=== PATIENT | male | born 1970 | race Hispanic/Latino ===

== ENCOUNTER 2018-01-08 15:52 | Emergency (ER) | payer SELFPAY ==
[2018-01-08] MEDS ORDERED: Lidocaine 1% PF 5 ML VIAL ONE ×3 (16:09→17:21)
[2018-01-08] MEDS ORDERED: cefTRIAXone\\ROCEPHIN 1 GM VIAL ONE (16:19)
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
== END 2018-01-08 18:15 | disposition home or self-care (01) ==
LOC: ERS 15:52
DX: S61.315A Laceration without foreign body of left ring finger with damage to nail, initial encounter (principal); S61.301A Unspecified open wound of left index finger with damage to nail, initial encounter; S61.217A Laceration without foreign body of left little finger without damage to nail, initial encounter; W22.8XXA Striking against or struck by other objects, initial encounter
CPT/HCPCS: 12001; 96372; J0696; J2001

== ENCOUNTER 2020-05-28 11:44 | Inpatient (IN) | payer SELFPAY ==
[2020-05-28] MEDS ORDERED: cefTRIAXone\\ROCEPHIN 1 GM VIAL ONE (12:15)
[2020-05-28] MEDS ORDERED: Acetaminophen 500 MG TAB ONE (12:15)
[2020-05-28] MEDS ORDERED: Dexamethasone 10 MG/ML VIAL ONE (12:15)
[2020-05-28] MEDS ORDERED: Azithromycin 500 MG VIAL ONE (12:15)
--- NOTE | 2020-05-28 12:15 | RAD ---
Exam: Chest one view HISTORY:Dyspnea. Shortness of breath. Comparison: None FINDINGS: Cardiac silhouette: Normal Aorta: Unremarkable Pulmonary vessels: Normal Costophrenic angles: Clear LUNGS: Diminished lung volumes, likely due to a poor inspiratory effort. There are multifocal interst itial and alveolar opacities. Pneumothorax: None Osseous abnormalities: None IMPRESSION: Multifocal interstitial and alveolar opacities. Correlate for COVID 19 pneumonia.
[2020-05-28 12:26] LABS: #Lymphocytes 0.7 thou/uL (1.20-3.40); #Monocytes 0.7 thou/uL (0.11-0.59); #Neutrophils 13.6 thou/uL (1.40-6.50); %Basophils 0.1 % (0.0-1.0); %Lymphocytes 4.6 % (21.0-51.0); %Monocytes 4.9 % (0.0-10.0); %Neutrophils 90.3 % (42.0-75.0); Hemoglobin 13.8 g/dL (14.0-18.0); Mean Corpuscular HGB CONC 34.9 g/dL (32.0-36.0); Mean Corpuscular Hemoglobin 31.5 pg (27.0-31.0); Mean Corpuscular Volume 90.3 fL (78.0-98.0); Mean Platelet Volume 8.7 fL (7.4-10.4); Platelet Count 224 thou/uL (130-400); RBC Distribution Width 11.8 % (11.5-14.5); Red Blood Cell (RBC) Count 4.39 mill/uL (4.70-6.10)
[2020-05-28 12:44] LABS: ALT (SGPT) 25 U/L (8-55); AST (SGOT) 17 U/L (5-34); Albumin 4.2 g/dL (3.5-5.0); Alkaline Phosphatase 131 U/L (40-110); Anion Gap 18 mmol/L (10-20); BUN (Urea Nitrogen) 14 mg/dL (8.9-20.6); Bilirubin, Total 0.7 mg/dL (0.2-1.2); Calc. Creatinine Clearance 0 mL/min (70-130); Calcium 9.6 mg/dL (7.8-10.44); Carbon Dioxide 25 mmol/L (22-29); Chloride 99 mmol/L (98-107); Globulin 4.2 g/dL (2.4-3.5); Glucose 150 mg/dL (70-105); Potassium 3.5 mmol/L (3.5-5.1); Protein, Total 8.4 g/dL (6.0-8.3); Sodium 138 mmol/L (136-145)
[2020-05-28] MEDS ORDERED: Iopamidol-370 76% 500 ML 1 ML ONE (13:07)
[2020-05-28 13:19] LABS: SARS-CoV-2 NAA Rapid Test DETECTED (NotDetected)
--- NOTE | 2020-05-28 14:11 | CT ---
CT ANGIO OF CHEST PERFORMED WITH INTRAVENOUS CONTRAST ENHANCEMENT WITH 3D RECONSTRUCTIONS: HISTORY: Mild nonproductive cough, low-grade fever. FINDINGS: There are fairly extensive bilateral ground-glass infiltrative lung changes highly suggestive of COVI D pneumonia. There is no significant mediastinal adenopathy. There are small nonspecific hilar node s. The pulmonary artery opacification is suboptimal and this exam is not diagnostic for evaluation for p ulmonary embolus. Visualized liver parenchyma shows no focal abnormalities. IMPRESSION: 1. Extensive bilateral ground-glass infiltrates, highly suspicious for COVID pneumonia. 2. Nondiagnostic examination for evaluation for pulmonary embolus due to poor contrast bolus. POS: NIKITA
[2020-05-28] MEDS ORDERED: Ondansetron PF 4 MG/2 ML Vial IVP PRN (15:18)
[2020-05-28] MEDS ORDERED: Dextrose 50% Abboject 50 ML SYRINGE SLOW IVP PRN (15:18)
[2020-05-28] MEDS ORDERED: Senokot S 8.6-50 MG TAB PO PRN (15:18)
[2020-05-28] MEDS ORDERED: Bisacodyl 10 MG SUPP PR PRN (15:18)
[2020-05-28] MEDS ORDERED: Dextrose 5% in Water 1,000 ML IV PRN (15:18)
[2020-05-28] MEDS ORDERED: Calcium Carbonate 500 MG ChewTAB PO PRN (15:18)
[2020-05-28 15:25] LABS: Troponin I Less than 0.010 ng/mL (< 0.028)
[2020-05-28] MEDS ORDERED: Enoxaparin Sodium 100 MG/ML SYRINGE ONE (16:10)
[2020-05-28] MEDS ORDERED: REMDESIVIR (EUA) 200 MG in Sodium Chloride 0.9% 250 ML 210 ML IV SCH (17:00)
--- NOTE | 2020-05-28 18:29 | HP ---
REASON FOR ADMISSION: COVID-19 pneumonia with acute respiratory failure with hypoxia on high-flow oxygen. HISTORY OF PRESENTING ILLNESS: The patient gives history of developing shortness of breath from last two days, specifically Thursday afternoon. He states he developed fever from yesterday. He has had progressive shortness of breath and finally made it to emergency room. He could not ambulate at home. He states his and 6-year-old and 2-year-old children are healthy as far as he knows. No complaints of chest pain, palpitation, or specific weakness in the extremities. No diarrhea. The patient states he is tolerating solid diet, but has some loss of appetite. 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 PAST SURGICAL HISTORY: No prior surgeries. CURRENT MEDICATIONS: None. PERSONAL HISTORY: Drinks on social occasions. Does not abuse drugs or smoke. Lives with his . Works in construction. FAMILY HISTORY: Both parents are living and healthy as far as he knows. CODE STATUS: Full. Power of safety professional is his . REVIEW OF SYSTEMS: CONSTITUTIONAL: Negative for weight loss or gain, ability to conduct usual activities. SKIN: Negative for rash, itching. EYES: Negative for double vision, pain. ENT/MOUTH: Negative for nose bleeding, neck stiffness, pain, tenderness. CARDIOVASCULAR: Negative for palpitations, dyspnea on exertion, orthopnea. RESPIRATORY: Negative for shortness of breath, wheezing, cough, hemoptysis, fever or night sweats. GASTROINTESTINAL: Negative for poor appetite, abdominal pain, heartburn, nausea, vomiting, constipation, or diarrhea. GENITOURINARY: Negative for urgency, frequency, dysuria, nocturia. MUSCULOSKELETAL: Negative for pain, swelling. NEUROLOGIC/PSYCHIATRIC: Negative for anxiety, depression. ALLERGY/IMMUNOLOGIC: Negative for skin rash, bleeding tendency. PHYSICAL EXAMINATION: GENERAL: The patient is a 49-year-old male who is currently in [id number] respiratory distress and is on high-flow oxygen. VITAL SIGNS: Blood pressure 130/80, pulse 98 per minute, respiratory rate 34 per minute, temperature 102.9 degrees Fahrenheit, and saturating 86% on room air and 100% on high-flow oxygen. NECK: Supple. No elevated JVD. HEENT: Eyes, extraocular muscles intact. Pupils reacting to light. Oral cavity, mucous membranes are dry. No exudates or congestion. CARDIOVASCULAR SYSTEM: S1, S2 heard. RESPIRATORY SYSTEM: Air entry 1+ bilateral. The patient has coarse rales bilateral, rhonchi plus bilateral. ABDOMEN: Soft. Bowel sounds heard. No tenderness, rigidity, or guarding. EXTREMITIES: No peripheral edema or calf tenderness. VASCULAR SYSTEM: Peripheral pulses 2+ bilateral. No ischemic ulcers or gangrene. CENTRAL NERVOUS SYSTEM: No gross focal motor deficits noted. The patient is alert, awake and oriented well. PSYCHIATRIC SYSTEM: The patient's mood is euthymic. No hallucinations or delusions. IMAGING DATA: CT angio chest done shows extensive bilateral ground-glass infiltrates highly suspicious for COVID pneumonia. The exam was nondiagnostic for PE due to poor contrast bolus. LABORATORY DATA: AST 17, ALT 25, alkaline phosphatase 131, total bilirubin 0.7. BNP 10. Albumin 4.2. COVID-19 PCR is positive. Influenza A and B antigens are negative. Troponin x2 negative. Electrolytes stable. BUN 14, creatinine 0.8. D-dimer 0.7. White count of 15, hemoglobin and hematocrit 13 and 39, platelet count 224 with 90% neutrophils. CLINICAL IMPRESSION AND PLAN: The patient will be admitted to medical floor for acute respiratory failure with hypoxia on high-flow oxygen with COVID-19 pneumonia. The patient states his symptoms started two days back and has had progressive worsening. He is saturating well on high-flow oxygen at present. He has extensive infiltrates on the CAT scan. I have spoken to Dr. Houser and he has agreed for remdesivir. He will be on albuterol inhaler every 6 hours, dexamethasone 6 mg IV daily, Pepcid 20 mg twice daily, and Lovenox 40 mg subcu twice daily. The patient's serum glucose is 150 and he states he is not a diabetic. We will obtain HbA1c and place him on moderate coverage with Humalog. We will continue to closely monitor him on medical floor. Job ID: [id number]
[2020-05-28 18:57] LABS: Hemoglobin A1c 5.5 % (4.0-6.0)
[2020-05-28 19:47] VITALS: BMI 28.0
[2020-05-28] MEDS: Enoxaparin Sodium 40 MG/0.4 ML SYRINGE SC SCH (21:11)
[2020-05-28] MEDS: Famotidine 20 MG TAB PO SCH (21:11)
[2020-05-28] MEDS: Albuterol 200 PUFF (6.7GM INHALER) INH SCH (22:31)
[2020-05-29] MEDS: Albuterol 200 PUFF (6.7GM INHALER) INH SCH ×4 (02:07→18:46)
[2020-05-29 06:41] LABS: Hemoglobin 13.3 g/dL (14.0-18.0); Mean Corpuscular HGB CONC 33.9 g/dL (32.0-36.0); Mean Corpuscular Hemoglobin 31.4 pg (27.0-31.0); Mean Corpuscular Volume 92.5 fL (78.0-98.0); Mean Platelet Volume 8.7 fL (7.4-10.4); Platelet Count 236 thou/uL (130-400); RBC Distribution Width 11.8 % (11.5-14.5); Red Blood Cell (RBC) Count 4.23 mill/uL (4.70-6.10); White Blood Cell (WBC) Count 16.5 thou/uL (4.8-10.8)
[2020-05-29 06:53] LABS: ALT (SGPT) 25 U/L (8-55); AST (SGOT) 20 U/L (5-34); Albumin 3.5 g/dL (3.5-5.0); Alkaline Phosphatase 117 U/L (40-110); Bilirubin, Direct 0.2 mg/dL (0.1-0.3); Bilirubin, Total 0.3 mg/dL (0.2-1.2); Protein, Total 7.1 g/dL (6.0-8.3)
[2020-05-29 08:00] LABS: Band 9 % (5-11); Lymphocytes 6 % (21-51); Monocytes 1 % (0-10)
[2020-05-29 08:01] LABS: Neutrophil 84 % (42-75); Platelet Morphology Comment Appears Adequate; Polychromasia SLIGHT = 2-3 cells (100X) (0-2/hpf)
[2020-05-29] MEDS: Famotidine 20 MG TAB PO SCH ×2 (09:19→20:10)
[2020-05-29] MEDS: Enoxaparin Sodium 40 MG/0.4 ML SYRINGE SC SCH ×2 (09:19→20:10)
[2020-05-29] MEDS: Dexamethasone 6 MG in Sodium Chloride 0.9% 50 ML IVPB SCH (09:19)
--- NOTE | 2020-05-29 12:14 | PDOC.HOSPP ---
- Subjective Encounter Date: 05/29/20 Encounter Time: 08:00 Subjective: is on nasal cannula, gets sob on minimal exertion in the room no chest pain or diarrhea or weakness in specific extremity - Objective Vital Signs & Weight: Vital Signs (12 hours) Temp Pulse Resp BP Pulse Ox 05/29/20 09:00 98.1 F 99 22 H 129/78 98 05/29/20 08:00 98 05/29/20 04:00 99 F 88 20 132/72 100 Weight Weight 163 lb 12.855 oz I&O: 05/28/20 05/29/20 05/30/20 06:59 06:59 06:59 Intake Total 650 Balance 650 Result Diagrams: 05/29/20 05:55 05/28/20 12:11 Additional Labs: Accuchecks 05/29/20 05/29/20 05/28/20 12:00 05:34 21:15 POC Glucose 163 H 136 H 166 H Hospitalist ROS - Medication Medications: Active Medications Generic Name Dose Route Start Last Admin Trade Name Santosh PRN Reason Stop Dose Admin Albuterol Sulfate 2 puff 05/28/20 19:00 05/29/20 06:42 Albuterol 200 Puff (6.7gm Inhaler) INH 2 puff [id number] GREG Administration Enoxaparin Sodium 40 mg 05/28/20 21:00 05/29/20 09:19 Enoxaparin Sodium 40 Mg/0.4 Ml Syringe SC 40 mg BID GREG Administration Famotidine 20 mg 05/28/20 21:00 05/29/20 09:19 Famotidine 20 Mg Tab PO 20 mg BID GREG Administration Dexamethasone 6 mg/ Sodium 50.6 mls @ 100 mls/hr 05/29/20 09:00 05/29/20 09:19 Chloride IVPB 50.6 mls DAILY GREG Administration - Exam General Appearance: awake alert Eye: PERRL, anicteric sclera ENT: no oropharyngeal lesions, moist mucosa Neck: supple, no JVD Heart: RRR, no murmur Respiratory: no wheezes, rales, rhonchi Gastrointestinal: soft, non-tender, non-distended, normal bowel sounds Extremities: no cyanosis, no edema Neurological: cranial nerve grossly intact, no focal deficits Psychiatric: normal affect, A&O x 3 Hosp A/P (1) Pneumonia due to COVID-19 virus Code(s): U07.1 - COVID-19; J12.89 - OTHER VIRAL PNEUMONIA Status: Acute (2) Acute respiratory failure with hypoxia Code(s): J96.01 - ACUTE RESPIRATORY FAILURE WITH HYPOXIA Status: Acute (3) DM type 2 (diabetes mellitus, type 2) Status: Chronic 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
[2020-05-29] MEDS: HumaLOG 300 UNITS/3 ML VIAL SC PRN (16:43)
[2020-05-29] MEDS: REMDESIVIR (EUA) 100 MG in Sodium Chloride 0.9% 250 ML 230 ML IV SCH (16:44)
[2020-05-29] MEDS ORDERED: Zinc Sulfate 220 MG CAP PO SCH (19:30)
[2020-05-29] MEDS ORDERED: Ascorbic Acid 500 mg Chewable Tablet PO SCH (19:30)
[2020-05-29] MEDS: Cholecalciferol 1,000 UNITS (25 MCG) TAB PO SCH (20:10)
--- NOTE | 2020-05-29 21:29 | CON ---
DATE OF CONSULTATION: 05/29/2020 REASON FOR CONSULTATION: COVID pneumonia. HISTORY OF PRESENT ILLNESS: A 49-year-old with no past medical history, who developed worsening dyspnea since Thursday. Mild nonproductive cough, maybe a low-grade fever, general malaise, so he came in with worsening dyspnea and his BP 130/90, pulse 117, respiratory rate 34, temperature 102.9, O2 saturations were 97 on room air. He was for a brief period of time, was placed on high-flow O2. The CT showed diffuse infiltrates. Exam with a few crackles here and there. Other findings include white cell count 15, hemoglobin 13, platelets 224, 90% neutrophils, lymphocytopenia. D-dimer 0.7. Ferritin 306. CRP 34. COVID RNA PCR positive. PMHx: none PSHx: R orbit enucleation following accident Social hx: no cigarettes or alcohol, works in construction FHx: htn all: none PHYSICAL EXAMINATION: GENERAL: Currently, he is tachypneic, feeling dyspneic on minimal effort. HEENT: No headaches. He has had enucleation right eye. Oral cavity normal. NECK: Supple. LUNGS: Symmetric, clear breath sounds. S1-S2, regular rate. No S3 or S4. ABDOMEN: Soft, not distended or tender. No ascites. No bladder distention. MUSCULOSKELETAL: No joint inflammatory activity. NEURO EXAMINATION: Nonfocal. FOLLOWUP LABORATORY DATA: White cell count 16, hemoglobin 13, platelets 236, and creatinine is 1, measured once. ASSESSMENT AND PLAN: [id number] coronavirus disease 2019 pneumonia, patton lobar. Ferritin not very elevated, but CRP is, so we will track CRP. He is on Remdesivir and Decadron to be continued and monitor labs and enoxaparin prophylactic intermediate dose. I had him do brief exercise and his O2 sats did not drop much. Job ID: [id number] [facility]
[2020-05-30] MEDS: Albuterol 200 PUFF (6.7GM INHALER) INH SCH ×5 (01:35→23:03)
[2020-05-30] MEDS: Acetaminophen 325 MG TAB PO PRN ×3 (04:49→20:21)
[2020-05-30 06:45] LABS: #Monocytes 0.6 thou/uL (0.11-0.59); #Neutrophils 10.4 thou/uL (1.40-6.50); %Basophils 0.1 % (0.0-1.0); %Eosinophils 0.1 % (0.0-10.0); %Lymphocytes 8.4 % (21.0-51.0); %Neutrophils 86.3 % (42.0-75.0); Mean Corpuscular HGB CONC 33.2 g/dL (32.0-36.0); Mean Corpuscular Hemoglobin 30.6 pg (27.0-31.0); Mean Corpuscular Volume 92.2 fL (78.0-98.0); Mean Platelet Volume 8.1 fL (7.4-10.4); Platelet Count 274 thou/uL (130-400); RBC Distribution Width 11.8 % (11.5-14.5); Red Blood Cell (RBC) Count 4.25 mill/uL (4.70-6.10); White Blood Cell (WBC) Count 12.1 thou/uL (4.8-10.8)
[2020-05-30 07:05] LABS: ALT (SGPT) 48 U/L (8-55); AST (SGOT) 34 U/L (5-34); Albumin 3.5 g/dL (3.5-5.0); Alkaline Phosphatase 123 U/L (40-110); Anion Gap 13 mmol/L (10-20); BUN (Urea Nitrogen) 20 mg/dL (8.9-20.6); Bilirubin, Direct 0.2 mg/dL (0.1-0.3); Bilirubin, Total 0.3 mg/dL (0.2-1.2); Calc. Creatinine Clearance 123 mL/min (70-130); Calcium 8.8 mg/dL (7.8-10.44); Carbon Dioxide 27 mmol/L (22-29); Chloride 101 mmol/L (98-107); Glucose 124 mg/dL (70-105); Potassium 3.4 mmol/L (3.5-5.1); Protein, Total 7.2 g/dL (6.0-8.3); Sodium 138 mmol/L (136-145)
[2020-05-30] MEDS: Enoxaparin Sodium 40 MG/0.4 ML SYRINGE SC SCH ×2 (08:07→20:08)
[2020-05-30] MEDS: Famotidine 20 MG TAB PO SCH ×2 (08:08→20:06)
[2020-05-30] MEDS: Cholecalciferol 1,000 UNITS (25 MCG) TAB PO SCH ×2 (08:08→20:07)
[2020-05-30] MEDS: Zinc Sulfate 220 MG CAP PO SCH (08:08)
[2020-05-30] MEDS: Ascorbic Acid 500 mg Chewable Tablet PO SCH (08:08)
[2020-05-30] MEDS: Dexamethasone 6 MG in Sodium Chloride 0.9% 50 ML IVPB SCH (09:09)
[2020-05-30] MEDS ORDERED: Albuterol 200 PUFF (6.7GM INHALER) INH PRN (10:56)
--- NOTE | 2020-05-30 17:26 | PDOC.HOSPP ---
- Subjective Encounter Date: 05/30/20 Encounter Time: 08:00 Subjective: Patient seen for follow-up regarding COVID-19 pneumonia. Reports cough. Denies fevers or chills. - Objective Vital Signs & Weight: Vital Signs (12 hours) Temp Pulse Resp BP Pulse Ox 05/30/20 16:00 98.3 F 79 16 109/72 100 05/30/20 15:16 99.0 F 05/30/20 12:00 101.8 F H 107 H 18 120/84 97 05/30/20 11:57 101.8 F H 05/30/20 08:00 99 05/30/20 07:32 99.9 F H 92 20 120/69 99 05/30/20 05:48 100 Weight Weight 163 lb 12.855 oz I&O: 05/29/20 05/30/20 05/31/20 06:59 06:59 06:59 Intake Total 650 Balance 650 Result Diagrams: 05/30/20 06:20 05/30/20 06:20 Additional Labs: Accuchecks 05/30/20 05/29/20 04:42 20:00 POC Glucose 121 H 172 H Labs and MAR reviewed by hi Hospitalist ROS - Review of Systems Respiratory: reports: cough, dry. denies: shortness of breath, hemoptysis, SOB with excertion, pleuritic pain, sputum, wheezing Cardiovascular: denies: chest pain, palpitations, orthopnea, paroxysmal noc. dyspnea, edema, light headedness - Medication Medications: Active Medications Generic Name Dose Route Start Last Admin Trade Name Freq PRN Reason Stop Dose Admin Acetaminophen 650 mg 05/28/20 15:18 05/30/20 11:57 Acetaminophen 325 Mg Tab PO 650 mg Q4H PRN Administration Headache/Fever/Mild Pain (1-3) Ascorbic Acid 1,000 mg 05/30/20 09:00 05/30/20 08:08 Ascorbic Acid 500 Mg Chewable Tablet PO 1,000 mg DAILY GREG Administration Cholecalciferol 1,000 units 05/30/20 09:00 05/30/20 08:08 Cholecalciferol 1,000 Units (25 Mcg) Tab PO 1,000 units DAILY GREG Administration Cholecalciferol 1,000 units 05/29/20 21:00 05/29/20 20:10 Cholecalciferol 1,000 Units (25 Mcg) Tab PO 1,000 units HS GREG Administration Enoxaparin Sodium 40 mg 05/28/20 21:00 05/30/20 08:07 Enoxaparin Sodium 40 Mg/0.4 Ml Syringe SC 40 mg BID GREG Administration Famotidine 20 mg 05/28/20 21:00 05/30/20 08:08 Famotidine 20 Mg Tab PO 20 mg BID GREG Administration Dexamethasone 6 mg/ Sodium 50.6 mls @ 100 mls/hr 05/29/20 09:00 05/30/20 09:09 Chloride IVPB 50.6 mls DAILY GREG Administration Remdesivir 100 mg/ Sodium 250 mls @ 250 mls/hr 05/29/20 17:00 05/29/20 16:44 Chloride IV 06/01/20 17:59 250 mls 1700 GREG Administration Insulin Human Lispro 0 units 05/28/20 15:18 05/29/20 16:43 Humalog 300 Units/3 Ml Vial SC 4 unit .MODERATE SLIDING SC PRN Administration Moderate Correctional Scale Zinc Sulfate 220 mg 05/30/20 09:00 05/30/20 08:08 Zinc Sulfate 220 Mg Cap PO 220 mg DAILY GREG Administration - Exam General Appearance: awake alert Eye: anicteric sclera ENT: moist mucosa Neck: supple Respiratory: rales, rhonchi Gastrointestinal: soft Skin: no rashes Psychiatric: normal affect, normal behavior Hosp A/P - Plan -Assessment (1) Pneumonia due to COVID-19 virus Code(s): U07.1 - COVID-19; J12.89 - OTHER VIRAL PNEUMONIA Status: Acute (2) Acute respiratory failure with hypoxia Code(s): J96.01 - ACUTE RESPIRATORY FAILURE WITH HYPOXIA Status: Acute (3) DM type 2 (diabetes mellitus, type 2) Status: Chronic 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 Continue remdesivir, and dexamethasone Continue vitamin C and zinc.
[2020-05-30] MEDS: REMDESIVIR (EUA) 100 MG in Sodium Chloride 0.9% 250 ML 230 ML IV SCH (17:45)
[2020-05-30] MEDS: guaiFENesin ER 600 MG TAB PO SCH (20:07)
[2020-05-30] MEDS: HumaLOG 300 UNITS/3 ML VIAL SC PRN (20:16)
[2020-05-31] MEDS: Albuterol 200 PUFF (6.7GM INHALER) INH SCH ×6 (02:57→22:40)
[2020-05-31 06:37] LABS: #Lymphocytes 0.7 thou/uL (1.20-3.40); #Monocytes 0.4 thou/uL (0.11-0.59); #Neutrophils 7.6 thou/uL (1.40-6.50); %Eosinophils 0.2 % (0.0-10.0); %Lymphocytes 7.5 % (21.0-51.0); %Monocytes 4.2 % (0.0-10.0); %Neutrophils 88.1 % (42.0-75.0); Hemoglobin 13.6 g/dL (14.0-18.0); Mean Corpuscular HGB CONC 34.5 g/dL (32.0-36.0); Mean Corpuscular Hemoglobin 31.7 pg (27.0-31.0); Mean Platelet Volume 8.2 fL (7.4-10.4); Platelet Count 314 thou/uL (130-400); RBC Distribution Width 11.8 % (11.5-14.5); Red Blood Cell (RBC) Count 4.27 mill/uL (4.70-6.10); White Blood Cell (WBC) Count 8.7 thou/uL (4.8-10.8)
[2020-05-31 07:02] LABS: ALT (SGPT) 44 U/L (8-55); AST (SGOT) 23 U/L (5-34); Albumin 3.5 g/dL (3.5-5.0); Alkaline Phosphatase 119 U/L (40-110); Anion Gap 15 mmol/L (10-20); BUN (Urea Nitrogen) 18 mg/dL (8.9-20.6); Bilirubin, Direct 0.2 mg/dL (0.1-0.3); Bilirubin, Total 0.3 mg/dL (0.2-1.2); Calc. Creatinine Clearance 123 mL/min (70-130); Calcium 8.9 mg/dL (7.8-10.44); Carbon Dioxide 26 mmol/L (22-29); Chloride 100 mmol/L (98-107); Glucose 133 mg/dL (70-105); Potassium 3.8 mmol/L (3.5-5.1); Protein, Total 7.3 g/dL (6.0-8.3); Sodium 137 mmol/L (136-145)
[2020-05-31] MEDS ORDERED: Dexamethasone 4 mg/ml Vial SLOW IVP SCH (08:00)
[2020-05-31] MEDS: Ascorbic Acid 500 mg Chewable Tablet PO SCH (08:41)
[2020-05-31] MEDS: guaiFENesin ER 600 MG TAB PO SCH ×2 (08:42→20:47)
[2020-05-31] MEDS: Acetaminophen 325 MG TAB PO PRN (08:42)
[2020-05-31] MEDS: Famotidine 20 MG TAB PO SCH ×2 (08:42→20:47)
[2020-05-31] MEDS: Enoxaparin Sodium 40 MG/0.4 ML SYRINGE SC SCH ×2 (08:42→20:48)
[2020-05-31] MEDS: Doxycycline 100 MG CAP PO SCH ×2 (08:42→20:47)
[2020-05-31] MEDS: Cholecalciferol 1,000 UNITS (25 MCG) TAB PO SCH ×2 (08:42→20:47)
[2020-05-31] MEDS: Zinc Sulfate 220 MG CAP PO SCH (08:42)
[2020-05-31] MEDS: HumaLOG 300 UNITS/3 ML VIAL SC PRN ×2 (11:12→16:48)
[2020-05-31] MEDS: REMDESIVIR (EUA) 100 MG in Sodium Chloride 0.9% 250 ML 230 ML IV SCH (16:25)
--- NOTE | 2020-05-31 18:18 | PDOC.HOSPP ---
- Subjective Encounter Date: 05/31/20 Encounter Time: 11:00 Subjective: Patient seen for follow-up regarding hypoxic respiratory failure. Denies chest pain. Reports cough. - Objective Vital Signs & Weight: Vital Signs (12 hours) Temp Pulse Resp BP Pulse Ox 05/31/20 12:05 99.0 F 05/31/20 08:55 102.7 F H 05/31/20 08:42 99.8 F H 94 20 05/31/20 08:00 102.7 F H 111 H 24 H 121/73 94 L Weight Weight 163 lb 12.855 oz I&O: 05/30/20 05/31/20 06/01/20 06:59 06:59 06:59 Intake Total 1020 Balance 1020 Result Diagrams: 05/31/20 06:08 05/31/20 06:08 Additional Labs: Accuchecks 05/31/20 05/31/20 05/31/20 16:29 11:03 05:01 POC Glucose 181 H 151 H 124 H 05/30/20 20:09 POC Glucose 214 H I reviewed patient's labs and MAR Hospitalist ROS - Review of Systems Respiratory: reports: cough, dry, SOB with excertion Cardiovascular: denies: chest pain, palpitations, orthopnea, paroxysmal noc. dyspnea, edema, light headedness Gastrointestinal: denies: nausea, vomiting, abdominal pain, diarrhea, constipation, melena, hematochezia - Medication Medications: Active Medications Generic Name Dose Route Start Last Admin Trade Name Freq PRN Reason Stop Dose Admin Acetaminophen 650 mg 05/28/20 15:18 05/31/20 08:42 Acetaminophen 325 Mg Tab PO 650 mg Q4H PRN Administration Headache/Fever/Mild Pain (1-3) Albuterol Sulfate 2 puff 05/30/20 14:30 05/31/20 18:07 Albuterol 200 Puff (6.7gm Inhaler) INH 2 puff [id number] GREG Administration Ascorbic Acid 1,000 mg 05/30/20 09:00 05/31/20 08:41 Ascorbic Acid 500 Mg Chewable Tablet PO 1,000 mg DAILY GREG Administration Cholecalciferol 1,000 units 05/30/20 09:00 05/31/20 08:42 Cholecalciferol 1,000 Units (25 Mcg) Tab PO 1,000 units DAILY GREG Administration Cholecalciferol 1,000 units 05/29/20 21:00 05/30/20 20:07 Cholecalciferol 1,000 Units (25 Mcg) Tab PO 1,000 units HS GREG Administration Doxycycline Hyclate 100 mg 05/31/20 09:00 05/31/20 08:42 Doxycycline 100 Mg Cap PO 100 mg BID GREG Administration Enoxaparin Sodium 40 mg 05/28/20 21:00 05/31/20 08:42 Enoxaparin Sodium 40 Mg/0.4 Ml Syringe SC 40 mg BID GREG Administration Famotidine 20 mg 05/28/20 21:00 05/31/20 08:42 Famotidine 20 Mg Tab PO 20 mg BID GREG Administration Guaifenesin 600 mg 05/30/20 21:00 05/31/20 08:42 Guaifenesin Er 600 Mg Tab PO 600 mg Q12HR GREG Administration Remdesivir 100 mg/ Sodium 250 mls @ 250 mls/hr 05/29/20 17:00 05/31/20 16:25 Chloride IV 06/01/20 17:59 250 mls 1700 GREG Administration Insulin Human Lispro 0 units 05/28/20 15:18 05/31/20 16:48 Humalog 300 Units/3 Ml Vial SC 2 unit .MODERATE SLIDING SC PRN Administration Moderate Correctional Scale Insulin Human Lispro 0 units 05/28/20 15:18 05/30/20 20:16 Humalog 300 Units/3 Ml Vial SC 2 unit .BEDTIME SLIDING SC PRN Administration Bedtime Correctional Scale Zinc Sulfate 220 mg 05/30/20 09:00 05/31/20 08:42 Zinc Sulfate 220 Mg Cap PO 220 mg DAILY GREG Administration - Exam General Appearance: awake alert Eye: anicteric sclera ENT: moist mucosa Neck: supple Heart: RRR Respiratory: CTAB Gastrointestinal: soft, non-tender Skin: no rashes Psychiatric: normal affect, normal behavior Hosp A/P - Plan -Assessment (1) Acute respiratory failure with hypoxia Code(s): J96.01 - ACUTE RESPIRATORY FAILURE WITH HYPOXIA Status: Acute (2) Pneumonia due to COVID-19 virus Code(s): U07.1 - COVID-19; J12.89 - OTHER VIRAL PNEUMONIA Status: Acute (3) DM type 2 (diabetes mellitus, type 2) Status: Chronic Qualifiers: Diabetes mellitus senior care insulin use: without long term acute care registered nurse use - Plan Continue as needed oxygen. Patient is on remdesivir, and dexamethasone Patient is on vitamin C and zinc.
--- NOTE | 2020-05-31 19:44 | PRG ---
DATE OF SERVICE: 05/31/2020 SUBJECTIVE: Feels better, although he is still tachypneic during the interview. He is coughing intermittently, but not as much. He is able to eat. No abdominal pain. He is able to walk to the bathroom without the same struggle that was before. Still having temperature elevation, the last one was 102.7 at 8 a.m., but has defervesced since somewhat, hopefully will remain likewise in the future. OBJECTIVE: VITAL SIGNS: 24 hours flow rate at 4 L nasal cannula, saturating at 94%, BP 120/70, heart rate is 94, and breathing 20 times a minute. GENERAL: Awake, alert, and oriented. LUNGS: With crackles, but not very prominent, more so in the right base. HEART: S1, S2. Regular rate. ABDOMEN: Soft, not distended or tender. No ascites. No bladder distention. EXTREMITIES: No joint inflammatory activity. Moves extremities equally. No edema. LABORATORY DATA: White cell count is down to 8.7, hemoglobin 13, platelets 314. Creatinine 0.77. Liver profile normal. Alkaline phosphatase 119. CRP is down from 34 to 18, has not been repeated today. Ferritin is normal, probably should not be followed any longer since we cannot use it as a benchmark. Currently still on remdesivir, Decadron, and azithromycin. ASSESSMENT AND DISCUSSION: Moderate to severe coronavirus disease, panlobar with some improvement. He is early in the disease course, just first week, that is why he is still having fevers, but going forward, things may get worse before they get better. Job ID: [id number]
[2020-06-01] MEDS: Albuterol 200 PUFF (6.7GM INHALER) INH SCH ×6 (02:49→23:09)
[2020-06-01 06:27] LABS: #Lymphocytes 0.9 thou/uL (1.20-3.40); #Monocytes 0.4 thou/uL (0.11-0.59); #Neutrophils 10.4 thou/uL (1.40-6.50); %Basophils 0.1 % (0.0-1.0); %Eosinophils 0.4 % (0.0-10.0); %Lymphocytes 7.7 % (21.0-51.0); %Monocytes 3.6 % (0.0-10.0); %Neutrophils 88.2 % (42.0-75.0); Hemoglobin 14.1 g/dL (14.0-18.0); Mean Corpuscular HGB CONC 34.3 g/dL (32.0-36.0); Mean Corpuscular Hemoglobin 31.3 pg (27.0-31.0); Mean Corpuscular Volume 91.3 fL (78.0-98.0); Mean Platelet Volume 8.1 fL (7.4-10.4); Platelet Count 379 thou/uL (130-400); White Blood Cell (WBC) Count 11.8 thou/uL (4.8-10.8)
[2020-06-01 06:48] LABS: ALT (SGPT) 47 U/L (8-55); AST (SGOT) 22 U/L (5-34); Albumin 3.5 g/dL (3.5-5.0); Alkaline Phosphatase 133 U/L (40-110); Anion Gap 18 mmol/L (10-20); BUN (Urea Nitrogen) 21 mg/dL (8.9-20.6); Bilirubin, Direct 0.2 mg/dL (0.1-0.3); Bilirubin, Total 0.4 mg/dL (0.2-1.2); Calc. Creatinine Clearance 128 mL/min (70-130); Calcium 9.1 mg/dL (7.8-10.44); Carbon Dioxide 22 mmol/L (22-29); Chloride 100 mmol/L (98-107); Glucose 120 mg/dL (70-105); Potassium 3.9 mmol/L (3.5-5.1); Protein, Total 7.4 g/dL (6.0-8.3); Sodium 136 mmol/L (136-145)
[2020-06-01] MEDS: Enoxaparin Sodium 40 MG/0.4 ML SYRINGE SC SCH ×2 (08:07→19:53)
[2020-06-01] MEDS: Doxycycline 100 MG CAP PO SCH ×2 (08:08→19:53)
[2020-06-01] MEDS: Ascorbic Acid 500 mg Chewable Tablet PO SCH (08:08)
[2020-06-01] MEDS: Famotidine 20 MG TAB PO SCH ×2 (08:08→19:54)
[2020-06-01] MEDS: guaiFENesin ER 600 MG TAB PO SCH ×2 (08:08→19:54)
[2020-06-01] MEDS: Dexamethasone 4 mg/ml Vial SLOW IVP SCH (08:08)
[2020-06-01] MEDS: Zinc Sulfate 220 MG CAP PO SCH (08:08)
[2020-06-01] MEDS: Cholecalciferol 1,000 UNITS (25 MCG) TAB PO SCH ×2 (08:08→19:53)
[2020-06-01] MEDS: Acetaminophen 325 MG TAB PO PRN (08:16)
[2020-06-01] MEDS: HumaLOG 300 UNITS/3 ML VIAL SC PRN ×2 (11:38→16:28)
--- NOTE | 2020-06-01 14:32 | RAD ---
Chest AP view INDICATION: Follow-up Covid disease COMPARISON: Prior exam dated May 28, 2020 FINDINGS: Lungs: The diffuse airspace disease appears slightly worsened from the prior exam particularly withi n the left lung. Cardiac silhouette: The cardiomediastinal silhouette appears within normal limits. Pulmonary vasculature: Normal Pleural spaces: No pleural effusion or pneumothorax is demonstrated. Upper abdomen: No abnormality seen. Osseous structures: No acute osseous abnormality. Additional findings: None. IMPRESSION: Worsening bilateral pneumonia.
--- NOTE | 2020-06-01 15:51 | PRG ---
DATE OF SERVICE: 06/01/2020 SUBJECTIVE: Still struggling with his COVID-19 illness with going to the full-blown inflammatory phase now. Still having fever. He is able to eat. He is able to talk and able to go to the restroom. No diarrhea. No joint symptoms. No abdominal pain. OBJECTIVE: VITAL SIGNS: Still having temperature elevation up to 102.7 yesterday at 8 a.m. and now he is 98.1. He is breathing at 22 times a minute. His pulse is 94 and flow rate 4 L. GENERAL: He is awake and alert, tachypneic. LUNGS: Scattered inspiratory crackles, actually not as bad as one would expect from his chest x-ray. HEART: S1 and S2. Regular rate. No S3 or S4. ABDOMEN: Soft, not distended or tender. No ascites. No bladder distention. EXTREMITIES: Moving extremities equally. LABORATORY DATA: White cell count 11.8, hemoglobin 14, platelets 379 with 88% neutrophils. Creatinine 0.74. Ferritin 305. Chest x-ray shows worsening of the infiltrates. ASSESSMENT AND DISCUSSION: Moderate to severe SARS-CoV2 infection with diffuse involvement now, going to the middle of the second week and we can see the inflammatory process kicking in. We will see if we can get the baricitinib as yesterday reported randomized control trial showed reduction in time to resolution of illness when used with remdesivir compared with remdesivir alone. Job ID: [id number]
[2020-06-01] MEDS: Acetaminophen 325 MG TAB PO SCH ×2 (17:32→23:08)
--- NOTE | 2020-06-01 17:48 | PDOC.HOSPP ---
- Subjective Encounter Date: 06/01/20 Encounter Time: 11:20 Subjective: Patient seen for follow-up regarding acute respiratory failure, hypoxic. Reports cough. Reports shortness of breath with exertion. - Objective Vital Signs & Weight: Vital Signs (12 hours) Temp Pulse Resp BP Pulse Ox 06/01/20 16:19 98.8 F 84 20 128/77 97 06/01/20 12:00 98.1 F 94 22 H 131/83 98 06/01/20 08:16 101.4 F H 06/01/20 08:15 101.4 F H 106 H 24 H 140/75 94 L 06/01/20 08:00 94 L Weight Weight 163 lb 12.855 oz I&O: 05/31/20 06/01/20 06/02/20 06:59 06:59 06:59 Intake Total 1020 480 Balance 1020 480 Result Diagrams: 06/01/20 06:04 06/01/20 06:04 Additional Labs: Accuchecks 06/01/20 06/01/20 05/31/20 11:35 04:14 20:51 POC Glucose 215 H 122 H 173 H 05/30/20 11:21 POC Glucose 161 H Labs and MAR reviewed by in Hospitalist ROS - Review of Systems Constitutional: reports: fever, weakness. denies: chills, sweats, malaise Respiratory: reports: cough, dry, SOB with excertion, other. denies: shortness of breath, hemoptysis, pleuritic pain, sputum, wheezing - Medication Medications: Active Medications Generic Name Dose Route Start Last Admin Trade Name Freq PRN Reason Stop Dose Admin Acetaminophen 650 mg 05/28/20 15:18 06/01/20 08:16 Acetaminophen 325 Mg Tab PO 650 mg Q4H PRN Administration Headache/Fever/Mild Pain (1-3) Acetaminophen 650 mg 06/01/20 18:00 06/01/20 17:32 Acetaminophen 325 Mg Tab PO 650 mg Q6HR GREG Administration Albuterol Sulfate 2 puff 05/30/20 14:30 06/01/20 15:05 Albuterol 200 Puff (6.7gm Inhaler) INH 2 puff [id number] GREG Administration Albuterol Sulfate 2 puff 05/30/20 10:56 06/01/20 12:15 Albuterol 200 Puff (6.7gm Inhaler) INH 2 puff Q2H PRN Administration SOB &/or Wheezing Ascorbic Acid 1,000 mg 05/30/20 09:00 06/01/20 08:08 Ascorbic Acid 500 Mg Chewable Tablet PO 1,000 mg DAILY GREG Administration Cholecalciferol 1,000 units 05/30/20 09:00 06/01/20 08:08 Cholecalciferol 1,000 Units (25 Mcg) Tab PO 1,000 units DAILY GREG Administration Cholecalciferol 1,000 units 05/29/20 21:00 05/31/20 20:47 Cholecalciferol 1,000 Units (25 Mcg) Tab PO 1,000 units HS GREG Administration Dexamethasone 6 mg 06/01/20 09:00 06/01/20 08:08 Dexamethasone 4 Mg/Ml Vial SLOW IVP 6 mg DAILY GREG Administration Doxycycline Hyclate 100 mg 05/31/20 09:00 06/01/20 08:08 Doxycycline 100 Mg Cap PO 100 mg BID GREG Administration Enoxaparin Sodium 40 mg 05/28/20 21:00 06/01/20 08:07 Enoxaparin Sodium 40 Mg/0.4 Ml Syringe SC 40 mg BID GREG Administration Famotidine 20 mg 05/28/20 21:00 06/01/20 08:08 Famotidine 20 Mg Tab PO 20 mg BID GREG Administration Guaifenesin 600 mg 05/30/20 21:00 06/01/20 08:08 Guaifenesin Er 600 Mg Tab PO 600 mg Q12HR GREG Administration Remdesivir 100 mg/ Sodium 250 mls @ 250 mls/hr 05/29/20 17:00 05/31/20 16:25 Chloride IV 06/01/20 17:59 250 mls 1700 GREG Administration Insulin Human Lispro 0 units 05/28/20 15:18 06/01/20 16:28 Humalog 300 Units/3 Ml Vial SC 2 unit .MODERATE SLIDING SC PRN Administration Moderate Correctional Scale Insulin Human Lispro 0 units 05/28/20 15:18 05/30/20 20:16 Humalog 300 Units/3 Ml Vial SC 2 unit .BEDTIME SLIDING SC PRN Administration Bedtime Correctional Scale Zinc Sulfate 220 mg 05/30/20 09:00 06/01/20 08:08 Zinc Sulfate 220 Mg Cap PO 220 mg DAILY GREG Administration - Exam General Appearance: awake alert Eye: anicteric sclera ENT: moist mucosa Neck: supple Heart: RRR Respiratory: CTAB Gastrointestinal: soft, non-tender Skin: no rashes Psychiatric: normal affect Hosp A/P - Plan -Assessment (1) Acute respiratory failure with hypoxia Code(s): J96.01 - ACUTE RESPIRATORY FAILURE WITH HYPOXIA Status: Acute (2) Pneumonia due to COVID-19 virus Code(s): U07.1 - COVID-19; J12.89 - OTHER VIRAL PNEUMONIA Status: Acute (3) DM type 2 (diabetes mellitus, type 2) Status: Chronic Qualifiers: Diabetes mellitus tank terminal gauger insulin use: without [facility] use - Plan Patient continues to spike fevers. Patient is on remdesivir, and dexamethasone. He is being started on baricitinib. Continue vitamin C and zinc. PT eval/treat.
[2020-06-01] MEDS: REMDESIVIR (EUA) 100 MG in Sodium Chloride 0.9% 250 ML 230 ML IV SCH (18:52)
[2020-06-01] MEDS: Guaifenesin DM 100-10/5 ML UDCUP PO PRN (23:08)
[2020-06-02] MEDS: Albuterol 200 PUFF (6.7GM INHALER) INH SCH ×6 (01:49→22:12)
[2020-06-02] MEDS: Acetaminophen 325 MG TAB PO SCH ×4 (05:33→23:26)
[2020-06-02] MEDS: Famotidine 20 MG TAB PO SCH ×2 (07:44→21:45)
[2020-06-02] MEDS: Ascorbic Acid 500 mg Chewable Tablet PO SCH (07:44)
[2020-06-02] MEDS: Enoxaparin Sodium 40 MG/0.4 ML SYRINGE SC SCH ×2 (07:44→21:45)
[2020-06-02] MEDS: Dexamethasone 4 mg/ml Vial SLOW IVP SCH (07:45)
[2020-06-02] MEDS: guaiFENesin ER 600 MG TAB PO SCH ×2 (07:45→21:45)
[2020-06-02] MEDS: Zinc Sulfate 220 MG CAP PO SCH (07:45)
[2020-06-02] MEDS: Cholecalciferol 1,000 UNITS (25 MCG) TAB PO SCH ×2 (07:45→21:45)
[2020-06-02] MEDS: Doxycycline 100 MG CAP PO SCH ×2 (07:56→21:45)
[2020-06-02 10:37] LABS: Actual Bicarbonate (HCO3a) 22.2 mEq/L (22-28); Base Excess (BEa) -0.4 mEq/L (-2.0 to +3.0); Calcium, Ionized (arterial) 1.18 mmol/L (1.12-1.30); Carboxyhemoglobin (COHb) 0.8 gm% (0.0-3.0); Hemoglobin (Hb) 14.2 g/dL (14.0-18.0); Potassium - ABG Lab 4.27 mmol/L (3.70-5.30); pH, Arterial 7.47 (7.35-7.45)
[2020-06-02 10:43] LABS: Hemoglobin 14.5 g/dL (14.0-18.0); Mean Corpuscular HGB CONC 33.7 g/dL (32.0-36.0); Mean Corpuscular Hemoglobin 30.7 pg (27.0-31.0); Mean Corpuscular Volume 90.9 fL (78.0-98.0); Mean Platelet Volume 8.1 fL (7.4-10.4); Platelet Count 427 thou/uL (130-400); RBC Distribution Width 11.8 % (11.5-14.5); Red Blood Cell (RBC) Count 4.72 mill/uL (4.70-6.10); White Blood Cell (WBC) Count 13.9 thou/uL (4.8-10.8)
[2020-06-02 10:44] LABS: O2 Tension (PaO2), arterial 54.2 mmHg (80.0-100.0); Puncture Site RRA
[2020-06-02 11:00] LABS: Anion Gap 16 mmol/L (10-20); BUN (Urea Nitrogen) 22 mg/dL (8.9-20.6); Calc. Creatinine Clearance 117 mL/min (70-130); Calcium 9.1 mg/dL (7.8-10.44); Carbon Dioxide 25 mmol/L (22-29); Chloride 99 mmol/L (98-107); Glucose 176 mg/dL (70-105); Potassium 4.3 mmol/L (3.5-5.1); Sodium 136 mmol/L (136-145)
[2020-06-02 11:29] LABS: Band 3 % (5-11); Lymphocytes 4 % (21-51); MDiff Complete? YES; Neutrophil 93 % (42-75); Platelet Morphology Comment Appears Increased; Vacuoles SLIGHT
[2020-06-02] MEDS: HumaLOG 300 UNITS/3 ML VIAL SC PRN ×2 (12:42→18:15)
--- NOTE | 2020-06-02 15:26 | PDOC.HOSPP ---
- Subjective Encounter Date: 06/02/20 Subjective: The patient is more tachypneic today. - Objective Vital Signs & Weight: Vital Signs (12 hours) Temp Pulse Resp BP Pulse Ox 06/02/20 11:53 98.0 F 98 54 H 116/71 98 06/02/20 08:00 97.7 F 103 H 62 H 118/78 93 L 06/02/20 04:15 98.4 F Weight Weight 163 lb 12.855 oz I&O: 06/01/20 06/02/20 06/03/20 06:59 06:59 06:59 Intake Total 480 1320 Balance 480 1320 Result Diagrams: 06/02/20 10:31 06/02/20 10:31 Additional Labs: Accuchecks 06/02/20 06/01/20 04:11 20:08 POC Glucose 120 H 165 H Hospitalist ROS - Medication Medications: Active Medications Generic Name Dose Route Start Last Admin Trade Name Freq PRN Reason Stop Dose Admin Acetaminophen 650 mg 05/28/20 15:18 06/01/20 08:16 Acetaminophen 325 Mg Tab PO 650 mg Q4H PRN Administration Headache/Fever/Mild Pain (1-3) Acetaminophen 650 mg 06/01/20 18:00 06/02/20 11:15 Acetaminophen 325 Mg Tab PO 650 mg Q6HR GREG Administration Albuterol Sulfate 2 puff 05/30/20 14:30 06/02/20 13:31 Albuterol 200 Puff (6.7gm Inhaler) INH 2 puff [id number] GREG Administration Albuterol Sulfate 2 puff 05/30/20 10:56 06/01/20 12:15 Albuterol 200 Puff (6.7gm Inhaler) INH 2 puff Q2H PRN Administration SOB &/or Wheezing Ascorbic Acid 1,000 mg 05/30/20 09:00 06/02/20 07:44 Ascorbic Acid 500 Mg Chewable Tablet PO 1,000 mg DAILY GREG Administration Cholecalciferol 1,000 units 05/30/20 09:00 06/02/20 07:45 Cholecalciferol 1,000 Units (25 Mcg) Tab PO 1,000 units DAILY GREG Administration Cholecalciferol 1,000 units 05/29/20 21:00 06/01/20 19:53 Cholecalciferol 1,000 Units (25 Mcg) Tab PO 1,000 units HS GREG Administration Dexamethasone 6 mg 06/01/20 09:00 06/02/20 07:45 Dexamethasone 4 Mg/Ml Vial SLOW IVP 6 mg DAILY GREG Administration Doxycycline Hyclate 100 mg 05/31/20 09:00 06/02/20 07:56 Doxycycline 100 Mg Cap PO 100 mg BID GREG Administration Enoxaparin Sodium 40 mg 05/28/20 21:00 06/02/20 07:44 Enoxaparin Sodium 40 Mg/0.4 Ml Syringe SC 40 mg BID GREG Administration Famotidine 20 mg 05/28/20 21:00 06/02/20 07:44 Famotidine 20 Mg Tab PO 20 mg BID GREG Administration Guaifenesin 600 mg 05/30/20 21:00 06/02/20 07:45 Guaifenesin Er 600 Mg Tab PO 600 mg Q12HR GREG Administration Guaifenesin/Dextromethorphan 15 ml 05/28/20 15:18 06/01/20 23:08 Guaifenesin Dm 100-10/5 Ml Udcup PO 15 ml Q4H PRN Administration Cough Insulin Human Lispro 0 units 05/28/20 15:18 06/02/20 12:42 Humalog 300 Units/3 Ml Vial SC 2 unit .MODERATE SLIDING SC PRN Administration Moderate Correctional Scale Insulin Human Lispro 0 units 05/28/20 15:18 05/30/20 20:16 Humalog 300 Units/3 Ml Vial SC 2 unit .BEDTIME SLIDING SC PRN Administration Bedtime Correctional Scale Zinc Sulfate 220 mg 05/30/20 09:00 06/02/20 07:45 Zinc Sulfate 220 Mg Cap PO 220 mg DAILY GREG Administration - Exam General Appearance: awake alert ENT: normocephalic atraumatic Neck: supple, no JVD Heart: RRR Respiratory: tachypneic Gastrointestinal: soft Extremities: no cyanosis, no clubbing Hosp A/P (1) Acute respiratory failure with hypoxia Code(s): J96.01 - ACUTE RESPIRATORY FAILURE WITH HYPOXIA Status: Acute (2) Pneumonia due to COVID-19 virus Code(s): U07.1 - COVID-19; J12.89 - OTHER VIRAL PNEUMONIA Status: Acute (3) DM type 2 (diabetes mellitus, type 2) Status: Chronic Qualifiers: Diabetes mellitus mcfp insulin use: without [facility] use - Plan 49-year-old male with history of diabetes mellitus who presented to the hospital with shortness of breath and was diagnosed with COVID-19 associated with respiratory failure with hypoxia. He is still on dexamethasone and appears to have completed a course of remdesivir. Chest x-ray appears to be worsening along with his respiratory status. ABG reveals hypoxia despite being on 4L of oxygen. I have turn up his oxygen to 5 L and if he remains hypoxic, we will advance him to a high flow nasal cannula. Enoxaparin for DVT prophylaxis.
[2020-06-02] MEDS: Guaifenesin DM 100-10/5 ML UDCUP PO PRN (23:38)
[2020-06-03] MEDS: Albuterol 200 PUFF (6.7GM INHALER) INH SCH ×6 (02:40→21:45)
[2020-06-03] MEDS: Acetaminophen 325 MG TAB PO SCH ×4 (05:24→23:39)
[2020-06-03] MEDS ORDERED: Lorazepam 2 MG/ML VIAL ONE (05:56)
[2020-06-03] MEDS ORDERED: Lorazepam 2 MG/ML VIAL SLOW IVP PRN (06:30)
[2020-06-03] MEDS: Cholecalciferol 1,000 UNITS (25 MCG) TAB PO SCH ×2 (07:51→21:05)
[2020-06-03] MEDS: Famotidine 20 MG TAB PO SCH ×2 (07:51→21:05)
[2020-06-03] MEDS: Enoxaparin Sodium 40 MG/0.4 ML SYRINGE SC SCH ×2 (07:51→21:06)
[2020-06-03] MEDS: Doxycycline 100 MG CAP PO SCH ×2 (07:51→21:05)
[2020-06-03] MEDS: Ascorbic Acid 500 mg Chewable Tablet PO SCH (07:51)
[2020-06-03] MEDS: Dexamethasone 4 mg/ml Vial SLOW IVP SCH (07:51)
[2020-06-03] MEDS: Zinc Sulfate 220 MG CAP PO SCH (07:52)
[2020-06-03] MEDS: guaiFENesin ER 600 MG TAB PO SCH ×2 (07:52→21:05)
[2020-06-03] MEDS: HumaLOG 300 UNITS/3 ML VIAL SC PRN ×2 (11:56→21:06)
--- NOTE | 2020-06-03 14:00 | PDOC.HOSPP ---
- Subjective Encounter Date: 06/03/20 Subjective: The patient is complaining of less shortness of breath today. - Objective Vital Signs & Weight: Vital Signs (12 hours) Temp Pulse Resp BP Pulse Ox Pulse Ox Pulse Ox 06/03/20 11:58 98 F 86 46 H 117/71 96 06/03/20 11:05 99.3 F 98 18 95/68 06/03/20 10:39 89 L 92 L 06/03/20 08:00 98.2 F 90 16 96/63 100 06/03/20 07:55 96 06/03/20 07:39 96 06/03/20 06:25 86 36 H 99 06/03/20 05:35 93 54 H 93 L 06/03/20 03:52 99.2 F 92 36 H 136/81 93 L Weight Weight 163 lb 12.855 oz I&O: 06/02/20 06/03/20 06/04/20 06:59 06:59 06:59 Intake Total 1320 490 Balance 1320 490 Result Diagrams: 06/02/20 10:31 06/02/20 10:31 Additional Labs: Accuchecks 06/03/20 06/03/20 06/02/20 11:09 05:30 16:07 POC Glucose 165 H 117 H 190 H Hospitalist ROS - Medication Medications: Active Medications Generic Name Dose Route Start Last Admin Trade Name Freq PRN Reason Stop Dose Admin Acetaminophen 650 mg 05/28/20 15:18 06/01/20 08:16 Acetaminophen 325 Mg Tab PO 650 mg Q4H PRN Administration Headache/Fever/Mild Pain (1-3) Acetaminophen 650 mg 06/01/20 18:00 06/03/20 11:58 Acetaminophen 325 Mg Tab PO 650 mg Q6HR GREG Administration Albuterol Sulfate 2 puff 05/30/20 14:30 06/03/20 11:10 Albuterol 200 Puff (6.7gm Inhaler) INH 2 puff [id number] GREG Administration Albuterol Sulfate 2 puff 05/30/20 10:56 06/01/20 12:15 Albuterol 200 Puff (6.7gm Inhaler) INH 2 puff Q2H PRN Administration SOB &/or Wheezing Ascorbic Acid 1,000 mg 05/30/20 09:00 06/03/20 07:51 Ascorbic Acid 500 Mg Chewable Tablet PO 1,000 mg DAILY GREG Administration Cholecalciferol 1,000 units 05/30/20 09:00 06/03/20 07:51 Cholecalciferol 1,000 Units (25 Mcg) Tab PO 1,000 units DAILY GREG Administration Cholecalciferol 1,000 units 05/29/20 21:00 06/02/20 21:45 Cholecalciferol 1,000 Units (25 Mcg) Tab PO 1,000 units HS GREG Administration Dexamethasone 6 mg 06/01/20 09:00 06/03/20 07:51 Dexamethasone 4 Mg/Ml Vial SLOW IVP 6 mg DAILY GREG Administration Doxycycline Hyclate 100 mg 05/31/20 09:00 06/03/20 07:51 Doxycycline 100 Mg Cap PO 100 mg BID GREG Administration Enoxaparin Sodium 40 mg 05/28/20 21:00 06/03/20 07:51 Enoxaparin Sodium 40 Mg/0.4 Ml Syringe SC 40 mg BID GREG Administration Famotidine 20 mg 05/28/20 21:00 06/03/20 07:51 Famotidine 20 Mg Tab PO 20 mg BID GREG Administration Guaifenesin 600 mg 05/30/20 21:00 06/03/20 07:52 Guaifenesin Er 600 Mg Tab PO 600 mg Q12HR GREG Administration Guaifenesin/Dextromethorphan 15 ml 05/28/20 15:18 06/02/20 23:38 Guaifenesin Dm 100-10/5 Ml Udcup PO 15 ml Q4H PRN Administration Cough Insulin Human Lispro 0 units 05/28/20 15:18 06/03/20 11:56 Humalog 300 Units/3 Ml Vial SC 2 unit .MODERATE SLIDING SC PRN Administration Moderate Correctional Scale Insulin Human Lispro 0 units 05/28/20 15:18 05/30/20 20:16 Humalog 300 Units/3 Ml Vial SC 2 unit .BEDTIME SLIDING SC PRN Administration Bedtime Correctional Scale Zinc Sulfate 220 mg 05/30/20 09:00 06/03/20 07:52 Zinc Sulfate 220 Mg Cap PO 220 mg DAILY GREG Administration - Exam General Appearance: awake alert ENT: normocephalic atraumatic Neck: supple, no JVD Heart: RRR Respiratory: normal chest expansion, no tachypnea, rhonchi Hosp A/P (1) Acute respiratory failure with hypoxia Code(s): J96.01 - ACUTE RESPIRATORY FAILURE WITH HYPOXIA Status: Acute (2) Pneumonia due to COVID-19 virus Code(s): U07.1 - COVID-19; J12.89 - OTHER VIRAL PNEUMONIA Status: Acute (3) DM type 2 (diabetes mellitus, type 2) Status: Chronic Qualifiers: Diabetes mellitus half-way insulin use: 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 He is still on dexamethasone and completed a course of remdesivir. Chest x-ray appears to be worsening along with his respiratory status. ABG reveals hypoxia despite being on 4L of oxygen yesterday. His oxygenation and shortness of breath improved on high flow nasal cannula. Enoxaparin for DVT prophylaxis.
[2020-06-03] MEDS: Guaifenesin DM 100-10/5 ML UDCUP PO PRN (21:09)
[2020-06-03] MEDS ORDERED: Sodium Chloride 0.65% Nasal 44 ML BOT EA NARE PRN (22:16)
[2020-06-04] MEDS: Albuterol 200 PUFF (6.7GM INHALER) INH SCH ×6 (03:08→21:34)
[2020-06-04] MEDS: Acetaminophen 325 MG TAB PO SCH ×3 (05:13→17:48)
[2020-06-04] MEDS: Enoxaparin Sodium 40 MG/0.4 ML SYRINGE SC SCH ×2 (08:26→21:34)
[2020-06-04] MEDS: Ascorbic Acid 500 mg Chewable Tablet PO SCH (08:26)
[2020-06-04] MEDS: Famotidine 20 MG TAB PO SCH ×2 (08:26→21:34)
[2020-06-04] MEDS: guaiFENesin ER 600 MG TAB PO SCH ×2 (08:26→21:34)
[2020-06-04] MEDS: Cholecalciferol 1,000 UNITS (25 MCG) TAB PO SCH ×2 (08:27→21:34)
[2020-06-04] MEDS: Dexamethasone 4 mg/ml Vial SLOW IVP SCH (08:27)
[2020-06-04] MEDS: Zinc Sulfate 220 MG CAP PO SCH (08:27)
[2020-06-04] MEDS: Doxycycline 100 MG CAP PO SCH ×2 (08:30→21:34)
--- NOTE | 2020-06-04 17:44 | PRG ---
DATE OF SERVICE: 06/04/2020 SUBJECTIVE: Sitting by the bedside. He has a high-flow nasal cannula O2 in place. He has still quite a bit dyspnea on effort, little bit constipation, able to eat. OBJECTIVE: VITAL SIGNS: His temperature is 98.0, O2 saturations are up between 95 and 100 on high-flow nasal cannula. LUNGS: With scattered inspiratory crackles, particularly in the right side. HEART: S1 and S2. Regular rate. ABDOMEN: Soft, not distended. NEUROLOGIC: Nonfocal. LABORATORY DATA: White cell count 13.9, hemoglobin 14, platelets 427, and 92% neutrophils. Creatinine 0.81. The last CRP was measured at 19 yesterday, it is a little bit lower. He is currently on Decadron and other medications. ASSESSMENT AND DISCUSSION: [id number] SARS-CoV infection with diffuse involvement now going to the end of the second week and looks like he is turning the corner here and we will continue current management. Job ID: [id number] [facility]
--- NOTE | 2020-06-04 18:26 | PDOC.HOSPP ---
- Subjective Encounter Date: 06/04/20 Subjective: The patient reported that his symptoms are better today. He appears to be less dyspneic. - Objective Vital Signs & Weight: Vital Signs (12 hours) Temp Pulse Resp BP Pulse Ox 06/04/20 16:47 97.6 F 83 18 106/70 100 06/04/20 14:26 95 06/04/20 11:33 97.5 F L 103 H 20 111/75 98 06/04/20 08:15 98.0 F 84 18 106/69 98 06/04/20 08:00 98 Weight Weight 163 lb 12.855 oz I&O: 06/03/20 06/04/20 06/05/20 06:59 06:59 06:59 Intake Total 490 2150 Balance 490 2150 Result Diagrams: 06/02/20 10:31 06/02/20 10:31 Additional Labs: Accuchecks 06/04/20 06/04/20 06/04/20 16:12 11:01 05:02 POC Glucose 208 H 143 H 110 H 06/03/20 06/02/20 06/02/20 19:54 21:53 11:41 POC Glucose 201 H 150 H 170 H 06/01/20 16:17 POC Glucose 199 H Hospitalist ROS - Medication Medications: Active Medications Generic Name Dose Route Start Last Admin Trade Name Freq PRN Reason Stop Dose Admin Acetaminophen 650 mg 05/28/20 15:18 06/01/20 08:16 Acetaminophen 325 Mg Tab PO 650 mg Q4H PRN Administration Headache/Fever/Mild Pain (1-3) Acetaminophen 650 mg 06/01/20 18:00 06/04/20 17:48 Acetaminophen 325 Mg Tab PO Not Given Q6HR GREG Albuterol Sulfate 2 puff 05/30/20 14:30 06/04/20 17:48 Albuterol 200 Puff (6.7gm Inhaler) INH 2 puff [id number] GREG Administration Albuterol Sulfate 2 puff 05/30/20 10:56 06/01/20 12:15 Albuterol 200 Puff (6.7gm Inhaler) INH 2 puff Q2H PRN Administration SOB &/or Wheezing Ascorbic Acid 1,000 mg 05/30/20 09:00 06/04/20 08:26 Ascorbic Acid 500 Mg Chewable Tablet PO 1,000 mg DAILY GREG Administration Cholecalciferol 1,000 units 05/30/20 09:00 06/04/20 08:27 Cholecalciferol 1,000 Units (25 Mcg) Tab PO 1,000 units DAILY GREG Administration Cholecalciferol 1,000 units 05/29/20 21:00 06/03/20 21:05 Cholecalciferol 1,000 Units (25 Mcg) Tab PO 1,000 units HS GREG Administration Dexamethasone 6 mg 06/01/20 09:00 06/04/20 08:27 Dexamethasone 4 Mg/Ml Vial SLOW IVP 6 mg DAILY GREG Administration Doxycycline Hyclate 100 mg 05/31/20 09:00 06/04/20 08:30 Doxycycline 100 Mg Cap PO 100 mg BID GREG Administration Enoxaparin Sodium 40 mg 05/28/20 21:00 06/04/20 08:26 Enoxaparin Sodium 40 Mg/0.4 Ml Syringe SC 40 mg BID GREG Administration Famotidine 20 mg 05/28/20 21:00 06/04/20 08:26 Famotidine 20 Mg Tab PO 20 mg BID GREG Administration Guaifenesin 600 mg 05/30/20 21:00 06/04/20 08:26 Guaifenesin Er 600 Mg Tab PO 600 mg Q12HR GREG Administration Guaifenesin/Dextromethorphan 15 ml 05/28/20 15:18 06/03/20 21:09 Guaifenesin Dm 100-10/5 Ml Udcup PO 15 ml Q4H PRN Administration Cough Insulin Human Lispro 0 units 05/28/20 15:18 06/03/20 11:56 Humalog 300 Units/3 Ml Vial SC 2 unit .MODERATE SLIDING SC PRN Administration Moderate Correctional Scale Insulin Human Lispro 0 units 05/28/20 15:18 06/03/20 21:06 Humalog 300 Units/3 Ml Vial SC 2 unit .BEDTIME SLIDING SC PRN Administration Bedtime Correctional Scale Sodium Chloride 0 ml 06/03/20 22:16 06/03/20 23:37 Sodium Chloride 0.65% Nasal 44 Ml Bot EA NARE 1 applic TID PRN Administration Nasal Congestion Zinc Sulfate 220 mg 05/30/20 09:00 06/04/20 08:27 Zinc Sulfate 220 Mg Cap PO 220 mg DAILY GREG Administration Hosp A/P (1) Acute respiratory failure with hypoxia Code(s): J96.01 - ACUTE RESPIRATORY FAILURE WITH HYPOXIA Status: Acute (2) Pneumonia due to COVID-19 virus Code(s): U07.1 - COVID-19; J12.89 - OTHER VIRAL PNEUMONIA Status: Acute (3) DM type 2 (diabetes mellitus, type 2) Status: Chronic Qualifiers: Diabetes mellitus chcf insulin use: without dedicated intermodal truck driver use - Plan 49-year-old male with history of diabetes mellitus who presented to the hospital with shortness of breath and was diagnosed with COVID-19 associated with respiratory failure with hypoxia. He is still on dexamethasone and completed a course of remdesivir.Continue enoxaparin for DVT prophylaxis. Chest x-ray appears to be worsening along with his respiratory status. The patient remains on high flow nasal cannula with 40% FiO2. His respiratory status has improved significantly since yesterday. Continue to monitor the patient closely.
[2020-06-04] MEDS: Guaifenesin DM 100-10/5 ML UDCUP PO PRN (21:34)
[2020-06-05] MEDS: Acetaminophen 325 MG TAB PO SCH ×6 (00:53→23:55)
[2020-06-05] MEDS: Guaifenesin DM 100-10/5 ML UDCUP PO PRN ×2 (01:45→05:47)
[2020-06-05] MEDS: Albuterol 200 PUFF (6.7GM INHALER) INH SCH ×6 (01:45→22:15)
[2020-06-05] MEDS: Ascorbic Acid 500 mg Chewable Tablet PO SCH (07:35)
[2020-06-05] MEDS: guaiFENesin ER 600 MG TAB PO SCH ×2 (07:35→19:43)
[2020-06-05] MEDS: Famotidine 20 MG TAB PO SCH ×2 (07:35→19:43)
[2020-06-05] MEDS: Dexamethasone 4 mg/ml Vial SLOW IVP SCH (07:36)
[2020-06-05] MEDS: Cholecalciferol 1,000 UNITS (25 MCG) TAB PO SCH ×2 (07:36→19:42)
[2020-06-05] MEDS: Zinc Sulfate 220 MG CAP PO SCH (07:36)
[2020-06-05] MEDS: Enoxaparin Sodium 40 MG/0.4 ML SYRINGE SC SCH ×2 (07:37→19:43)
[2020-06-05] MEDS: Doxycycline 100 MG CAP PO SCH ×2 (07:43→19:42)
--- NOTE | 2020-06-05 10:54 | RAD ---
XR Chest 1 View History: Hypoxia Comparison: Radiograph June 01, 2020 Findings: Slightly progressive peripheral airspace consolidation. No pneumothorax. No pneumomediastin um. No acute osseous abnormality. Impression: Slightly worsening peripheral lung aeration.
--- NOTE | 2020-06-05 17:06 | PDOC.HOSPP ---
- Subjective Encounter Date: 06/05/20 Subjective: Shortness of breath continues to improve. - Objective Vital Signs & Weight: Vital Signs (12 hours) Temp Pulse Resp BP BP Pulse Ox 06/05/20 16:47 100.2 F H 102 H 20 109/67 99 06/05/20 16:00 100.2 F H 102 H 20 109/67 99 06/05/20 12:00 96 06/05/20 11:34 97.9 F 96 26 H 101/68 94 L 06/05/20 08:00 97.9 F 73 22 H 103/62 100 Weight Weight 163 lb 12.855 oz I&O: 06/04/20 06/05/20 06/06/20 06:59 06:59 06:59 Intake Total 2150 960 Balance 2150 960 Result Diagrams: 06/02/20 10:31 06/02/20 10:31 Additional Labs: Accuchecks 06/05/20 06/05/20 06/05/20 16:12 10:57 04:15 POC Glucose 113 H 128 H 113 H 06/04/20 20:26 POC Glucose 147 H Hospitalist ROS - Medication Medications: Active Medications Generic Name Dose Route Start Last Admin Trade Name Freq PRN Reason Stop Dose Admin Acetaminophen 650 mg 05/28/20 15:18 06/01/20 08:16 Acetaminophen 325 Mg Tab PO 650 mg Q4H PRN Administration Headache/Fever/Mild Pain (1-3) Acetaminophen 650 mg 06/01/20 18:00 06/05/20 12:47 Acetaminophen 325 Mg Tab PO 650 mg Q6HR GREG Administration Albuterol Sulfate 2 puff 05/30/20 14:30 06/05/20 12:48 Albuterol 200 Puff (6.7gm Inhaler) INH 2 puff [id number] GREG Administration Albuterol Sulfate 2 puff 05/30/20 10:56 06/01/20 12:15 Albuterol 200 Puff (6.7gm Inhaler) INH 2 puff Q2H PRN Administration SOB &/or Wheezing Ascorbic Acid 1,000 mg 05/30/20 09:00 06/05/20 07:35 Ascorbic Acid 500 Mg Chewable Tablet PO 1,000 mg DAILY GREG Administration Cholecalciferol 1,000 units 05/30/20 09:00 06/05/20 07:36 Cholecalciferol 1,000 Units (25 Mcg) Tab PO 1,000 units DAILY GREG Administration Cholecalciferol 1,000 units 05/29/20 21:00 06/04/20 21:34 Cholecalciferol 1,000 Units (25 Mcg) Tab PO 1,000 units HS GREG Administration Dexamethasone 6 mg 06/01/20 09:00 06/05/20 07:36 Dexamethasone 4 Mg/Ml Vial SLOW IVP 6 mg DAILY GREG Administration Doxycycline Hyclate 100 mg 05/31/20 09:00 06/05/20 07:43 Doxycycline 100 Mg Cap PO 100 mg BID GREG Administration Enoxaparin Sodium 40 mg 05/28/20 21:00 06/05/20 07:37 Enoxaparin Sodium 40 Mg/0.4 Ml Syringe SC 40 mg BID GREG Administration Famotidine 20 mg 05/28/20 21:00 06/05/20 07:35 Famotidine 20 Mg Tab PO 20 mg BID GREG Administration Guaifenesin 600 mg 05/30/20 21:00 06/05/20 07:35 Guaifenesin Er 600 Mg Tab PO 600 mg Q12HR GREG Administration Guaifenesin/Dextromethorphan 15 ml 05/28/20 15:18 06/05/20 05:47 Guaifenesin Dm 100-10/5 Ml Udcup PO 15 ml Q4H PRN Administration Cough Insulin Human Lispro 0 units 05/28/20 15:18 06/03/20 11:56 Humalog 300 Units/3 Ml Vial SC 2 unit .MODERATE SLIDING SC PRN Administration Moderate Correctional Scale Insulin Human Lispro 0 units 05/28/20 15:18 06/03/20 21:06 Humalog 300 Units/3 Ml Vial SC 2 unit .BEDTIME SLIDING SC PRN Administration Bedtime Correctional Scale Sodium Chloride 0 ml 06/03/20 22:16 06/03/20 23:37 Sodium Chloride 0.65% Nasal 44 Ml Bot EA NARE 1 applic TID PRN Administration Nasal Congestion Zinc Sulfate 220 mg 05/30/20 09:00 06/05/20 07:36 Zinc Sulfate 220 Mg Cap PO 220 mg DAILY GREG Administration - Exam General Appearance: awake alert ENT: normocephalic atraumatic Neck: supple Heart: RRR Respiratory: normal chest expansion, no tachypnea, rhonchi Gastrointestinal: soft Extremities: no cyanosis Hosp A/P (1) Acute respiratory failure with hypoxia Code(s): J96.01 - ACUTE RESPIRATORY FAILURE WITH HYPOXIA Status: Acute (2) Pneumonia due to COVID-19 virus Code(s): U07.1 - COVID-19; J12.89 - OTHER VIRAL PNEUMONIA Status: Acute (3) DM type 2 (diabetes mellitus, type 2) Status: Chronic Qualifiers: Diabetes mellitus assisted insulin 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 He is still on dexamethasone and completed a course of remdesivir.Continue enoxaparin for DVT prophylaxis. Chest x-ray appears to be worsening along with his respiratory status. We will wean him off HFNC to NC today and titrate off as tolerated.
[2020-06-06] MEDS: Albuterol 200 PUFF (6.7GM INHALER) INH SCH ×6 (03:36→22:30)
[2020-06-06] MEDS: Acetaminophen 325 MG TAB PO SCH ×3 (05:06→17:52)
[2020-06-06 05:29] LABS: #Eosinphils 0.3 thou/uL (0.0-0.7); #Monocytes 0.5 thou/uL (0.11-0.59); #Neutrophils 9.3 thou/uL (1.40-6.50); %Basophils 0.2 % (0.0-1.0); %Eosinophils 2.4 % (0.0-10.0); %Lymphocytes 8.7 % (21.0-51.0); %Monocytes 4.8 % (0.0-10.0); Hemoglobin 13.9 g/dL (14.0-18.0); Mean Corpuscular HGB CONC 33.3 g/dL (32.0-36.0); Mean Corpuscular Hemoglobin 30.6 pg (27.0-31.0); Mean Corpuscular Volume 91.8 fL (78.0-98.0); Mean Platelet Volume 7.8 fL (7.4-10.4); Platelet Count 456 thou/uL (130-400); RBC Distribution Width 11.9 % (11.5-14.5); Red Blood Cell (RBC) Count 4.56 mill/uL (4.70-6.10); White Blood Cell (WBC) Count 11.1 thou/uL (4.8-10.8)
[2020-06-06 06:38] LABS: Anion Gap 15 mmol/L (10-20); BUN (Urea Nitrogen) 18 mg/dL (8.9-20.6); Calc. Creatinine Clearance 120 mL/min (70-130); Calcium 8.6 mg/dL (7.8-10.44); Carbon Dioxide 25 mmol/L (22-29); Chloride 101 mmol/L (98-107); Glucose 102 mg/dL (70-105); Potassium 4.2 mmol/L (3.5-5.1); Sodium 137 mmol/L (136-145)
[2020-06-06] MEDS: Ascorbic Acid 500 mg Chewable Tablet PO SCH (08:29)
[2020-06-06] MEDS: Doxycycline 100 MG CAP PO SCH ×2 (08:29→21:23)
[2020-06-06] MEDS: Famotidine 20 MG TAB PO SCH ×2 (08:30→21:23)
[2020-06-06] MEDS: guaiFENesin ER 600 MG TAB PO SCH ×2 (08:30→21:24)
[2020-06-06] MEDS: Zinc Sulfate 220 MG CAP PO SCH (08:30)
[2020-06-06] MEDS: Dexamethasone 4 mg/ml Vial SLOW IVP SCH (08:30)
[2020-06-06] MEDS: Cholecalciferol 1,000 UNITS (25 MCG) TAB PO SCH ×2 (08:30→21:24)
[2020-06-06] MEDS: Enoxaparin Sodium 40 MG/0.4 ML SYRINGE SC SCH ×2 (08:30→21:23)
--- NOTE | 2020-06-06 15:32 | PDOC.HOSPP ---
- Subjective Encounter Date: 06/06/20 Subjective: No new events since yesterday. - Objective Vital Signs & Weight: Vital Signs (12 hours) Temp Pulse Resp BP BP Pulse Ox 06/06/20 08:00 99 06/06/20 07:28 98.6 F 83 16 97/65 96 06/06/20 05:05 98.6 F 97 18 101/68 100 Weight Weight 163 lb 12.855 oz I&O: 06/05/20 06/06/20 06/07/20 06:59 06:59 06:59 Intake Total 960 500 Balance 960 500 Result Diagrams: 06/06/20 05:03 06/06/20 05:03 Additional Labs: Accuchecks 06/06/20 06/06/20 06/05/20 14:57 04:16 22:15 POC Glucose 142 H 112 H 114 H 06/05/20 16:12 POC Glucose 113 H Hospitalist ROS - Medication Medications: Active Medications Generic Name Dose Route Start Last Admin Trade Name Freq PRN Reason Stop Dose Admin Acetaminophen 650 mg 05/28/20 15:18 06/01/20 08:16 Acetaminophen 325 Mg Tab PO 650 mg Q4H PRN Administration Headache/Fever/Mild Pain (1-3) Acetaminophen 650 mg 06/01/20 18:00 06/06/20 11:30 Acetaminophen 325 Mg Tab PO 650 mg Q6HR GREG Administration Albuterol Sulfate 2 puff 05/30/20 14:30 06/06/20 08:31 Albuterol 200 Puff (6.7gm Inhaler) INH 2 puff [id number] GREG Administration Albuterol Sulfate 2 puff 05/30/20 10:56 06/01/20 12:15 Albuterol 200 Puff (6.7gm Inhaler) INH 2 puff Q2H PRN Administration SOB &/or Wheezing Ascorbic Acid 1,000 mg 05/30/20 09:00 06/06/20 08:29 Ascorbic Acid 500 Mg Chewable Tablet PO 1,000 mg DAILY GRGE Administration Cholecalciferol 1,000 units 05/30/20 09:00 06/06/20 08:30 Cholecalciferol 1,000 Units (25 Mcg) Tab PO 1,000 units DAILY GREG Administration Cholecalciferol 1,000 units 05/29/20 21:00 06/05/20 19:42 Cholecalciferol 1,000 Units (25 Mcg) Tab PO 1,000 units HS GREG Administration Dexamethasone 6 mg 06/01/20 09:00 06/06/20 08:30 Dexamethasone 4 Mg/Ml Vial SLOW IVP 6 mg DAILY GREG Administration Doxycycline Hyclate 100 mg 05/31/20 09:00 06/06/20 08:29 Doxycycline 100 Mg Cap PO 100 mg BID GREG Administration Enoxaparin Sodium 40 mg 05/28/20 21:00 06/06/20 08:30 Enoxaparin Sodium 40 Mg/0.4 Ml Syringe SC 40 mg BID GREG Administration Famotidine 20 mg 05/28/20 21:00 06/06/20 08:30 Famotidine 20 Mg Tab PO 20 mg BID GREG Administration Guaifenesin 600 mg 05/30/20 21:00 06/06/20 08:30 Guaifenesin Er 600 Mg Tab PO 600 mg Q12HR GREG Administration Guaifenesin/Dextromethorphan 15 ml 05/28/20 15:18 06/05/20 05:47 Guaifenesin Dm 100-10/5 Ml Udcup PO 15 ml Q4H PRN Administration Cough Insulin Human Lispro 0 units 05/28/20 15:18 06/03/20 11:56 Humalog 300 Units/3 Ml Vial SC 2 unit .MODERATE SLIDING SC PRN Administration Moderate Correctional Scale Insulin Human Lispro 0 units 05/28/20 15:18 06/03/20 21:06 Humalog 300 Units/3 Ml Vial SC 2 unit .BEDTIME SLIDING SC PRN Administration Bedtime Correctional Scale Sodium Chloride 0 ml 06/03/20 22:16 06/03/20 23:37 Sodium Chloride 0.65% Nasal 44 Ml Bot EA NARE 1 applic TID PRN Administration Nasal Congestion Zinc Sulfate 220 mg 05/30/20 09:00 06/06/20 08:30 Zinc Sulfate 220 Mg Cap PO 220 mg DAILY GREG Administration - Exam General Appearance: awake alert ENT: normocephalic atraumatic Neck: supple, no JVD Heart: RRR Respiratory: normal chest expansion, no tachypnea Extremities: no cyanosis, no clubbing Neurological: cranial nerve grossly intact, no focal deficits Hosp A/P (1) Acute respiratory failure with hypoxia Code(s): J96.01 - ACUTE RESPIRATORY FAILURE WITH HYPOXIA Status: Acute (2) Pneumonia due to COVID-19 virus Code(s): U07.1 - COVID-19; J12.89 - OTHER VIRAL PNEUMONIA Status: Acute (3) DM type 2 (diabetes mellitus, type 2) Status: Chronic Qualifiers: Diabetes mellitus terminologist insulin use: without terminologist use - Plan 49-year-old male with history of diabetes mellitus who presented to the hospital with shortness of breath and was diagnosed with COVID-19 associated with respiratory failure with hypoxia. He is still on dexamethasone and completed a course of remdesivir.Continue enoxaparin for DVT prophylaxis. Repeat chest x-ray appears to be worsening. The patient is tolerating nasal cannula at 3 L. We will wean him off as tolerated.
[2020-06-07] MEDS: Acetaminophen 325 MG TAB PO SCH ×4 (00:40→17:36)
[2020-06-07] MEDS: Albuterol 200 PUFF (6.7GM INHALER) INH SCH ×6 (02:43→23:47)
[2020-06-07] MEDS: Ascorbic Acid 500 mg Chewable Tablet PO SCH (09:19)
[2020-06-07] MEDS: Famotidine 20 MG TAB PO SCH ×2 (09:19→22:12)
[2020-06-07] MEDS: Enoxaparin Sodium 40 MG/0.4 ML SYRINGE SC SCH ×2 (09:19→22:12)
[2020-06-07] MEDS: Zinc Sulfate 220 MG CAP PO SCH (09:20)
[2020-06-07] MEDS: guaiFENesin ER 600 MG TAB PO SCH ×2 (09:20→22:12)
[2020-06-07] MEDS: Dexamethasone 4 mg/ml Vial SLOW IVP SCH (09:20)
[2020-06-07] MEDS: Cholecalciferol 1,000 UNITS (25 MCG) TAB PO SCH ×2 (09:20→22:12)
[2020-06-07] MEDS: Doxycycline 100 MG CAP PO SCH ×2 (09:45→22:13)
[2020-06-07] MEDS: HumaLOG 300 UNITS/3 ML VIAL SC PRN (12:52)
--- NOTE | 2020-06-07 15:03 | PDOC.HOSPP ---
- Subjective Encounter Date: 06/07/20 Subjective: The patient has been afebrile since yesterday. His oxygen requirement has not changed. - Objective Vital Signs & Weight: Vital Signs (12 hours) Temp Pulse Resp BP BP Pulse Ox 06/07/20 12:34 98.1 F 06/07/20 12:04 98.3 F 06/07/20 12:00 98.1 F 112 H 20 121/71 95 06/07/20 09:02 98.3 F 77 20 103/65 97 06/07/20 08:00 98.3 F 77 97 06/07/20 04:00 99.0 F 89 20 96 Weight Admit Weight 163 lb 12.8 oz Weight 163 lb 12.855 oz I&O: 06/06/20 06/07/20 06/08/20 06:59 06:59 06:59 Intake Total 500 480 Balance 500 480 Result Diagrams: 06/06/20 05:03 06/06/20 05:03 Additional Labs: Accuchecks 06/07/20 06/06/20 06/06/20 06:05 21:31 14:57 POC Glucose 132 H 107 H 142 H 06/06/20 11:13 POC Glucose 139 H Hospitalist ROS - Medication Medications: Active Medications Generic Name Dose Route Start Last Admin Trade Name Freq PRN Reason Stop Dose Admin Acetaminophen 650 mg 05/28/20 15:18 06/01/20 08:16 Acetaminophen 325 Mg Tab PO 650 mg Q4H PRN Administration Headache/Fever/Mild Pain (1-3) Acetaminophen 650 mg 06/01/20 18:00 06/07/20 12:04 Acetaminophen 325 Mg Tab PO 650 mg Q6HR GREG Administration Albuterol Sulfate 2 puff 05/30/20 14:30 06/07/20 09:46 Albuterol 200 Puff (6.7gm Inhaler) INH 2 puff [id number] GREG Administration Albuterol Sulfate 2 puff 05/30/20 10:56 06/01/20 12:15 Albuterol 200 Puff (6.7gm Inhaler) INH 2 puff Q2H PRN Administration SOB &/or Wheezing Ascorbic Acid 1,000 mg 05/30/20 09:00 06/07/20 09:19 Ascorbic Acid 500 Mg Chewable Tablet PO 1,000 mg DAILY GREG Administration Cholecalciferol 1,000 units 05/30/20 09:00 06/07/20 09:20 Cholecalciferol 1,000 Units (25 Mcg) Tab PO 1,000 units DAILY GREG Administration Cholecalciferol 1,000 units 05/29/20 21:00 06/06/20 21:24 Cholecalciferol 1,000 Units (25 Mcg) Tab PO 1,000 units HS GREG Administration Dexamethasone 6 mg 06/01/20 09:00 06/07/20 09:20 Dexamethasone 4 Mg/Ml Vial SLOW IVP 6 mg DAILY GREG Administration Doxycycline Hyclate 100 mg 05/31/20 09:00 06/07/20 09:45 Doxycycline 100 Mg Cap PO 100 mg BID GREG Administration Enoxaparin Sodium 40 mg 05/28/20 21:00 06/07/20 09:19 Enoxaparin Sodium 40 Mg/0.4 Ml Syringe SC 40 mg BID GREG Administration Famotidine 20 mg 05/28/20 21:00 06/07/20 09:19 Famotidine 20 Mg Tab PO 20 mg BID GREG Administration Guaifenesin 600 mg 05/30/20 21:00 06/07/20 09:20 Guaifenesin Er 600 Mg Tab PO 600 mg Q12HR RGEG Administration Guaifenesin/Dextromethorphan 15 ml 05/28/20 15:18 06/05/20 05:47 Guaifenesin Dm 100-10/5 Ml Udcup PO 15 ml Q4H PRN Administration Cough Insulin Human Lispro 0 units 05/28/20 15:18 06/07/20 12:52 Humalog 300 Units/3 Ml Vial SC 2 unit .MODERATE SLIDING SC PRN Administration Moderate Correctional Scale Insulin Human Lispro 0 units 05/28/20 15:18 06/03/20 21:06 Humalog 300 Units/3 Ml Vial SC 2 unit .BEDTIME SLIDING SC PRN Administration Bedtime Correctional Scale Sodium Chloride 0 ml 06/03/20 22:16 06/03/20 23:37 Sodium Chloride 0.65% Nasal 44 Ml Bot EA NARE 1 applic TID PRN Administration Nasal Congestion Zinc Sulfate 220 mg 05/30/20 09:00 06/07/20 09:20 Zinc Sulfate 220 Mg Cap PO 220 mg DAILY GREG Administration Hosp A/P (1) Acute respiratory failure with hypoxia Code(s): J96.01 - ACUTE RESPIRATORY FAILURE WITH HYPOXIA Status: Acute (2) Pneumonia due to COVID-19 virus Code(s): U07.1 - COVID-19; J12.89 - OTHER VIRAL PNEUMONIA Status: Acute (3) DM type 2 (diabetes mellitus, type 2) Status: Chronic Qualifiers: Diabetes mellitus custodial insulin use: without termite treater helper use - Plan 49-year-old male with history of diabetes mellitus who presented to the hospital with shortness of breath and was diagnosed with COVID-19 associated with respiratory failure with hypoxia. He is still on dexamethasone and completed a course of remdesivir.Continue enoxaparin for DVT prophylaxis. Repeat chest x-ray appears to be worsening. The patient still requiring around 3 L of oxygen. If his condition remained stable over the next 24 to 48 hours we will contemplate discharging him home on oxygen.
[2020-06-08] MEDS: Acetaminophen 325 MG TAB PO SCH ×4 (01:56→19:31)
[2020-06-08] MEDS: Albuterol 200 PUFF (6.7GM INHALER) INH SCH ×6 (04:01→21:35)
[2020-06-08] MEDS: Famotidine 20 MG TAB PO SCH ×2 (08:37→22:21)
[2020-06-08] MEDS: guaiFENesin ER 600 MG TAB PO SCH ×2 (08:38→22:21)
[2020-06-08] MEDS: Doxycycline 100 MG CAP PO SCH ×2 (08:38→22:21)
[2020-06-08] MEDS: Zinc Sulfate 220 MG CAP PO SCH (08:38)
[2020-06-08] MEDS: Ascorbic Acid 500 mg Chewable Tablet PO SCH (08:38)
[2020-06-08] MEDS: Cholecalciferol 1,000 UNITS (25 MCG) TAB PO SCH ×2 (08:38→22:21)
[2020-06-08] MEDS: Dexamethasone 4 mg/ml Vial SLOW IVP SCH (08:39)
[2020-06-08] MEDS: Enoxaparin Sodium 40 MG/0.4 ML SYRINGE SC SCH ×2 (08:39→22:21)
[2020-06-08] MEDS ORDERED: Acetaminophen 325 MG TAB PO PRN (12:04)
--- NOTE | 2020-06-08 14:26 | PDOC.HOSPP ---
- Subjective Encounter Date: 06/08/20 Subjective: The patient does not have any significant symptoms at this point. However, he still requiring oxygen. - Objective Vital Signs & Weight: Vital Signs (12 hours) Temp Pulse Resp BP BP Pulse Ox 06/08/20 12:15 98.0 F 98 24 H 117/73 92 L 06/08/20 08:00 96 06/08/20 04:00 98.4 F 79 20 101/69 95 Weight Admit Weight 163 lb 12.8 oz Weight 163 lb 12.855 oz I&O: 06/07/20 06/08/20 06/09/20 06:59 06:59 06:59 Intake Total 1820 240 Balance 1820 240 Result Diagrams: 06/06/20 05:03 06/06/20 05:03 Additional Labs: Accuchecks 06/08/20 06/07/20 06/07/20 06:32 16:44 12:13 POC Glucose 115 H 156 H 159 H Hospitalist ROS - Medication Medications: Active Medications Generic Name Dose Route Start Last Admin Trade Name Freq PRN Reason Stop Dose Admin Acetaminophen 650 mg 06/01/20 18:00 06/08/20 12:18 Acetaminophen 325 Mg Tab PO Not Given Q6HR GREG Albuterol Sulfate 2 puff 05/30/20 14:30 06/08/20 12:17 Albuterol 200 Puff (6.7gm Inhaler) INH 2 puff [id number] GREG Administration Albuterol Sulfate 2 puff 05/30/20 10:56 06/01/20 12:15 Albuterol 200 Puff (6.7gm Inhaler) INH 2 puff Q2H PRN Administration SOB &/or Wheezing Ascorbic Acid 1,000 mg 05/30/20 09:00 06/08/20 08:38 Ascorbic Acid 500 Mg Chewable Tablet PO 1,000 mg DAILY GREG Administration Cholecalciferol 1,000 units 05/30/20 09:00 06/08/20 08:38 Cholecalciferol 1,000 Units (25 Mcg) Tab PO 1,000 units DAILY GREG Administration Cholecalciferol 1,000 units 05/29/20 21:00 06/07/20 22:12 Cholecalciferol 1,000 Units (25 Mcg) Tab PO 1,000 units HS GREG Administration Dexamethasone 6 mg 06/01/20 09:00 06/08/20 08:39 Dexamethasone 4 Mg/Ml Vial SLOW IVP 6 mg DAILY GREG Administration Doxycycline Hyclate 100 mg 05/31/20 09:00 06/08/20 08:38 Doxycycline 100 Mg Cap PO 100 mg BID GREG Administration Enoxaparin Sodium 40 mg 05/28/20 21:00 06/08/20 08:39 Enoxaparin Sodium 40 Mg/0.4 Ml Syringe SC 40 mg BID GREG Administration Famotidine 20 mg 05/28/20 21:00 06/08/20 08:37 Famotidine 20 Mg Tab PO 20 mg BID GREG Administration Guaifenesin 600 mg 05/30/20 21:00 06/08/20 08:38 Guaifenesin Er 600 Mg Tab PO 600 mg Q12HR GREG Administration Guaifenesin/Dextromethorphan 15 ml 05/28/20 15:18 06/05/20 05:47 Guaifenesin Dm 100-10/5 Ml Udcup PO 15 ml Q4H PRN Administration Cough Insulin Human Lispro 0 units 05/28/20 15:18 06/07/20 12:52 Humalog 300 Units/3 Ml Vial SC 2 unit .MODERATE SLIDING SC PRN Administration Moderate Correctional Scale Insulin Human Lispro 0 units 05/28/20 15:18 06/03/20 21:06 Humalog 300 Units/3 Ml Vial SC 2 unit .BEDTIME SLIDING SC PRN Administration Bedtime Correctional Scale Sodium Chloride 0 ml 06/03/20 22:16 06/03/20 23:37 Sodium Chloride 0.65% Nasal 44 Ml Bot EA NARE 1 applic TID PRN Administration Nasal Congestion Zinc Sulfate 220 mg 05/30/20 09:00 06/08/20 08:38 Zinc Sulfate 220 Mg Cap PO 220 mg DAILY GREG Administration - Exam General Appearance: awake alert ENT: normocephalic atraumatic Neck: supple Respiratory: normal chest expansion, no tachypnea Extremities: no cyanosis, no clubbing Neurological: cranial nerve grossly intact Hosp A/P (1) Acute respiratory failure with hypoxia Code(s): J96.01 - ACUTE RESPIRATORY FAILURE WITH HYPOXIA Status: Acute (2) Pneumonia due to COVID-19 virus Code(s): U07.1 - COVID-19; J12.89 - OTHER VIRAL PNEUMONIA Status: Acute (3) DM type 2 (diabetes mellitus, type 2) Status: Chronic Qualifiers: Diabetes mellitus intermission coordinator insulin use: without fci use - Plan 49-year-old male with history of diabetes mellitus who presented to the hospital with shortness of breath and was diagnosed with COVID-19 associated with respiratory failure with hypoxia. He is still on dexamethasone and completed a course of remdesivir.Continue enoxaparin for DVT prophylaxis. Repeat chest x-ray appears to be worsening. The patient still requiring around 3 L of oxygen. The patient's symptoms are stable but his oxygenation is not improving. We will try to arrange for home O2 in order to discharge him.
[2020-06-08] MEDS: HumaLOG 300 UNITS/3 ML VIAL SC PRN (17:30)
[2020-06-09] MEDS: Albuterol 200 PUFF (6.7GM INHALER) INH SCH ×4 (03:53→15:10)
[2020-06-09] MEDS: Cholecalciferol 1,000 UNITS (25 MCG) TAB PO SCH (09:41)
[2020-06-09] MEDS: Famotidine 20 MG TAB PO SCH (09:41)
[2020-06-09] MEDS: Zinc Sulfate 220 MG CAP PO SCH (09:41)
[2020-06-09] MEDS: Dexamethasone 4 mg/ml Vial SLOW IVP SCH (09:41)
[2020-06-09] MEDS: Doxycycline 100 MG CAP PO SCH (09:41)
[2020-06-09] MEDS: guaiFENesin ER 600 MG TAB PO SCH (09:41)
[2020-06-09] MEDS: Ascorbic Acid 500 mg Chewable Tablet PO SCH (09:41)
[2020-06-09] MEDS: Enoxaparin Sodium 40 MG/0.4 ML SYRINGE SC SCH (09:42)
--- NOTE | 2020-06-09 10:36 | EKG ---
Test Reason : Blood Pressure : / mmHG Vent. Rate : 114 BPM Atrial Rate : 114 BPM P-R Int : 130 ms QRS Dur : 098 ms QT Int : 340 ms P-R-T Axes : 052 -33 019 degrees QTc Int : 468 ms Sinus tachycardia Left axis deviation Abnormal ECG Confirmed by LIYA LOWE, LIV Harrell ([id number]), editor news CRISTA TIWARI ([id number]) on 06/09/2020 10:35:54 AM Referred By: Confirmed By:LIV NICKERSON MD
--- NOTE | 2020-06-09 12:52 | PDOC.DS.DS ---
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 The patient was managed in the hospital for 12 days with supplemental oxygen, dexamethasone, and DVT prophylaxis. His condition slowly and gradually improved until he was able to maintain a good oxygen saturations on room air on 06/09. Resuscitation Status: 05/28/20 15:11 Resuscitation Status Routine Resuscitation Status: FULL: Full Resuscitation Discussed with: poa: - Labs Lab Results: 06/06/20 05:03 06/06/20 05:03 Microbiology - Entire Visit 05/28/20 12:03 Venous blood - Left Arm Blood Culture - Final NO GROWTH IN 5 DAYS 05/28/20 12:03 Venous blood - Left Arm Blood Culture - Final NO GROWTH IN 5 DAYS 05/28/20 12:05 Nasal swab Influenza Types A,B Direct EIA - Final - Physical Exam Vitals: Vital Signs (12 hours) Temp Pulse Resp BP Pulse Ox 06/09/20 09:35 97.9 F 84 22 H 116/76 92 L 06/09/20 04:34 95 Weight Admit Weight 163 lb 12.8 oz Weight 163 lb 12.855 oz Physical Exam: The patient was seen and examined on the day of discharge. Problem - Problem (1) Acute respiratory failure with hypoxia Code(s): J96.01 - ACUTE RESPIRATORY FAILURE WITH HYPOXIA Status: Acute (2) Pneumonia due to COVID-19 virus Code(s): U07.1 - COVID-19; J12.89 - OTHER VIRAL PNEUMONIA Status: Acute (3) DM type 2 (diabetes mellitus, type 2) Status: Chronic Qualifiers: Diabetes mellitus termite exterminator helper insulin use: without custodial use Plan - Discharge Medications Home Medications: Medication Instructions Recorded Confirmed Type No Known 05/28/20 05/28/20 History Allergies: No Known Allergies Allergy (Unverified 05/28/20 15:37) - Follow up Plan Referrals: PROVIDER,NO PCP [Primary Care Provider] - Disposition: HOME Quality - Care Measures CORE MEASURES:: N/A
[2020-06-09] MEDS ORDERED: Boostrix 0.5 ML (Tdap) VIAL IM ONE (14:00)
[2020-06-09 16:23] VITALS: BP 121/81; TEMP 98.4
--- NOTE | 2020-06-12 02:41 | PQF ---
Dear : Watson Reed Date : 06/12/2020 Please exercise your independent, professional judgment in responding to the clarification form. Clinical indicators are provided on the bottom of this form for your review Can you please further clarify the diagnosis of the patient? Please check appropriate box(es): [ > ] Sepsis due to: COVID19 Pneumonia [ ] Severe sepsis to: COVID19 Pneumonia [ ] Localized infection without sepsis [ ] Other diagnosis, please specify [ ] Unable to determine Physician Signature: Date/Time: For continuity of documentation, please document condition throughout progress notes and discharge summary. Thank You. To be completed by CDI/Coding staff for physician review: Present Clinical Indicators - Signs / Symptoms / Labs Results and Location in Medical Record [ x ] VS: BP: 137/93, Pulse 126, RR: 34, T: 102.9 ED Provider pg.2 [ x ] tachycardic ED Provider pg.2 [ x ] tachypnea ED Provider pg.4 [ x ] COVID 19 pneumonia with acute respiratory failure H and P pg.1 [ x ] WBC: 15.0H, 16.5H, 12.1H, 8.7, 11.8H, 13.9H, 11.1H Laboratory [ x ] Lactic acid 1.9 Laboratory [ x ] Blood culture no growth in 5 days Microbiology [ x ] Chest Xray: There are multifocal interstitial and alveolar opacities Chest Xray 05/28 Present Risk Factors Results and Location in Medical Record [ x ] COVID Pneumonia H and P pg.1 [ x ] DM PN 05/29 Present Treatments Results and Location in Medical Record [ x ] IV Fluids MAR [ x ] O2 supplementation H and P pg.2 [ x ] Dexamethasone 50 mg IV MAR [ x ] Remdesivir 200mg IV MAR [ x ] Infectious Consult Corrina Cruz 05/30 [ x ] Azithromycin 500mg IV MAR CDS/Mysql Database Developer Signature: Ezio Saravia Phone #: ext [phone] Date 06/12/2020 This is a permanent part of the Medical Record [facility]
== END 2020-06-09 17:55 | disposition home or self-care (01) | DRG 871 ==
LOC: ERS 11:44 → ERHOLD 14:06 → T4-A 19:04
PROVIDERS: ADMIT Internal Medicine; ATTEND Internal Medicine
PROC: 8E0ZXY6 Isolation (ICD-10-PCS; principal; 2020-05-28)
PROC: XW033E5 Introduction of Remdesivir Anti-infective into Peripheral Vein, Percutaneous Approach, New Technology Group 5 (ICD-10-PCS; 2020-05-28)
DX: A41.89 Other specified sepsis (principal); U07.1 COVID-19; J96.01 Acute respiratory failure with hypoxia; J12.89 Other viral pneumonia; E11.9 Type 2 diabetes mellitus without complications; H54.7 Unspecified visual loss
CPT/HCPCS: 36415; 36416; 36600; 71045; 71275; 80048; 80053; 80076; 82728; 82805; 83036; 83605; 83615; 83880; 84484; 85007; 85025; 85027; 85379; 86140; 87040; 87804; 90715; 93005; 96365; 96367; 96372; 96375; J0456; J0696; J1100; J1650; J2060; J7050; Q9967; U0002